=== PATIENT | female | born 1995 | race African-American/Black ===

== ENCOUNTER 2018-07-26 21:08 | Emergency (ER) | payer BC ==
--- NOTE | 2018-07-26 21:21 | PDOC ---
Rapid Medical Evaluation Time Seen by Provider: 07/26/18 21:20 Medical Evaluation: 07/26/18 21:21 I have performed a brief in-person evaluation of this patient. The patient presents with a chief complaint of:URI Pertinent physical exam findings:well nandini and stable I have ordered the following:nothing The patient will proceed to the ED for further evaluation. Discharge Disposition - Diagnosis URI (upper respiratory infection) Qualifiers: URI type: unspecified viral URI Qualified Code(s): J06.9 - Acute upper respiratory infection, unspecified - Referrals - Patient Instructions - Post Discharge Activity
[2018-07-26 21:23] VITALS: BP 133/76; PULSE 79; TEMP 98; BMI 26.6
--- NOTE | 2018-07-26 22:14 | PDOC ---
History of Present Illness - General Chief Complaint: Cold Symptoms Stated Complaint: SINUS INFECTION Time Seen by Provider: 07/26/18 21:20 - History of Present Illness Initial Comments: 07/26/18 22:13 23-year-old female with a past medical history significant for asthma, assures me there is no chance of , presents for evaluation of sinus pressure and ear pain bilaterally without systemic symptoms 2 weeks. Past History - Past Medical History Allergies/Adverse Reactions: Allergies Allergy/AdvReac Type Severity Reaction Status Date / Time rangel Allergy Verified 07/26/18 21:24 latex Allergy Verified 07/26/18 21:24 shellfish derived Allergy Verified 07/26/18 21:24 Home Medications: Ambulatory Orders Amox-Tr/K Cl [Augmentin - 875Mg Tablet] 1 tab PO BID #20 tablet 07/26/18 Budesonide [Rhinocort Allergy] 1 spray NS ONCE #1 spray.pump 07/26/18 Asthma: Yes COPD: No CHF: No - Suicide/Smoking/Psychosocial Hx Smoking History: Unknown if ever smoked Have you smoked in the past 12 months: No Information on smoking cessation initiated: No Hx Alcohol Use: No Drug/Substance Use Hx: No Review of Systems - Review of Systems HEENTM: Yes: Ear Pain, Nose Pain, Nose Congestion *Physical Exam - Vital Signs Last Vital Signs Temp Pulse Resp BP Pulse Ox 98.0 F 79 16 133/76 100 07/26/18 21:21 07/26/18 21:21 07/26/18 21:21 07/26/18 21:21 07/26/18 21:21 - Physical Exam Comments: 07/26/18 22:12 HEAD: NC/AT EYES: Conjuntiva clear Ears: Canals and TM's normal NOSE: Clear discharge injected turbinates tender maxillary and frontal sinuses. THROAT: Moist mucous membrances, oral pharanx clear, uvula midline NECK: Supple without adenopathy CARDIAC: S1 S2 LUNGS: CTA Full and Equal breath sounds ABDOMEN: Soft NT ND MS: Full ROM in all joints without edema NEUROLOGIC: No gross sensory or motor deficits, NVID SKIN: Normal color and temperature no lesions or rashes Medical Decision Making - Medical Decision Making 07/26/18 22:12 We'll treat for bacterial sinusitis with steroid all nasal spray and antibiotics and have patient follow-up with ENT. She is in agreement with the plan. *DC/Admit/Observation/Transfer Diagnosis at time of Disposition: Sinusitis Diagnosis at time of Disposition: (Ruled Out): URI (upper respiratory infection) - Discharge Dispostion Disposition: HOME Condition at time of disposition: Stable Decision to Admit order: No - Prescriptions Prescriptions: Amox-Tr/K Cl [Augmentin - 875Mg Tablet] 1 tab PO BID #20 tablet Budesonide [Rhinocort Allergy] 1 spray NS ONCE #1 spray.pump - Referrals Referrals: Chastity Edmond MD [Primary Care Provider] - Johnny Pino MD [Staff Physician] - - Patient Instructions Printed Discharge Instructions: Sinusitis, DI for Sinusitis Additional Instructions: Take the antibiotics as directed. Use a nasal spray as directed. Return to the emergency room should symptoms worsen or go unresolved. Follow-up with ear nose and throat doctor in 1-2 days for further evaluation and treatment options. And return to the emergency room should symptoms worsen - Post Discharge Activity
== END 2018-07-26 22:16 | disposition home or self-care (01) ==
LOC: JER 21:08
DX: J32.9 Chronic sinusitis, unspecified (principal); J45.909 Unspecified asthma, uncomplicated
CPT/HCPCS: 99281-25

== ENCOUNTER 2018-09-10 16:51 | Emergency (ER) | payer BC ==
[2018-09-10 17:11] VITALS: BP 127/81; PULSE 90; TEMP 98.5; BMI 31.0
--- NOTE | 2018-09-10 17:12 | PDOC ---
Rapid Medical Evaluation Chief Complaint: Chest Pain Time Seen by Provider: 09/10/18 17:05 Medical Evaluation: Allergies Allergy/AdvReac Type Severity Reaction Status Date / Time rangel Allergy Verified 07/26/18 21:24 latex Allergy Verified 07/26/18 21:24 shellfish derived Allergy Verified 07/26/18 21:24 Vital Signs Temp Pulse Resp BP Pulse Ox 98.5 F 90 16 127/81 97 09/10/18 17:05 09/10/18 17:05 09/10/18 17:05 09/10/18 17:05 09/10/18 17:05 09/10/18 17:17 I have performed a brief in-person evaluation of this patient. The patient presents with a chief complaint of: chest pain Pertinent physical exam findings:stable and in NAD, non-focal I have ordered the following: ekg The patient will proceed to the ED for further evaluation.
[2018-09-10] MEDS ORDERED: ALBUTEROL SO4 2.5/IPRATROPIUM 0.5 INH SOL 3 ML VIAL.NEB. NEB ONE ×2 (17:27→17:30)
--- NOTE | 2018-09-10 17:35 | PDOC ---
History of Present Illness - General Chief Complaint: Chest Pain Stated Complaint: CHEST PAIN Time Seen by Provider: 09/10/18 17:05 History Source: Patient Exam Limitations: No Limitations Past History - Past Medical History Allergies/Adverse Reactions: Allergies Allergy/AdvReac Type Severity Reaction Status Date / Time rangel Allergy Verified 07/26/18 21:24 latex Allergy Verified 07/26/18 21:24 shellfish derived Allergy Verified 07/26/18 21:24 Asthma: Yes COPD: No CHF: No - Immunization History Immunization Up to Date: Yes - Suicide/Smoking/Psychosocial Hx Smoking History: Current every day smoker Have you smoked in the past 12 months: No Number of Cigarettes Smoked Daily: 20 Information on smoking cessation initiated: No Hx Alcohol Use: No Drug/Substance Use Hx: Yes *Physical Exam - Vital Signs Last Vital Signs Temp Pulse Resp BP Pulse Ox 98.5 F 90 16 127/81 97 09/10/18 17:05 09/10/18 17:05 09/10/18 17:05 09/10/18 17:05 09/10/18 17:05 - Physical Exam General Appearance: No: Apparent Distress HEENT: positive: Pharynx Normal Respiratory/Chest: positive: Wheezing (mild expiratory wheezing). negative: Chest Tender, Respiratory Distress Cardiovascular: positive: Regular Rhythm, Regular Rate, S1, S2. negative: Murmur Gastrointestinal/Abdominal: positive: Normal Bowel Sounds, Soft. negative: Tender, Distended, Guarding, Rebound Extremity: negative: Pedal Edema, Swelling, Calf Tenderness Integumentary: positive: Normal Color Neurologic: positive: Alert, Normal Mood/Affect ED Treatment Course - RADIOLOGY Radiology Studies Ordered: Category Date Time Status CHEST PA & LAT [RAD] Stat Radiology 09/10/18 17:27 Ordered Medical Decision Making - Medical Decision Making 23 y/o F hx of asthma (no recent hx of asthma attack, never hospitalized or intubated), smoker (1 ppd since 16 years old) presents with sharp, pressure like substernal CP from yesterday, intermittent in nature, worse with inspiration and body movement. Mentions having similar CP last year, relieved with Naprosyn. However, tried Naprosyn yesterday without relief of pain. Also endorses mild dry cough and mild SOB with CP. Denies fever, abd pain, n/v, pedal edema, calf tenderness, recent travel, use of OCPs. LNMP was last month. EKG: NSR at 83 bpm, no ST-T changes PERC negative Mild wheezing on exam - probable related to asthma and smoking history Plan: CXR, duoneb, reassess 09/10/18 17:31 Patient feeling slightly better after duoneb On reassessment, no further wheezing noted CXR reviewed and negative Advised to quit smoking Stable for dc 09/10/18 18:00 *DC/Admit/Observation/Transfer Diagnosis at time of Disposition: Chest pain Qualifiers: Chest pain type: unspecified Qualified Code(s): R07.9 - Chest pain, unspecified - Discharge Dispostion Disposition: HOME Condition at time of disposition: Stable Decision to Admit order: No - Referrals - Patient Instructions Printed Discharge Instructions: DI for Chest Pain Additional Instructions: Thank you for choosing [facility]. It was a pleasure taking care of you. Advise to quit smoking Take Albuterol nebulizer as needed for chest tightness Follow up with your doctor in 2 days for further evaluation Return to the Emergency Department if your symptoms worsen or persist or have other concerning symptoms. - Post Discharge Activity
--- NOTE | 2018-09-13 00:32 | EKG ---
Test Reason : Blood Pressure : / mmHG Vent. Rate : 083 BPM Atrial Rate : 083 BPM P-R Int : 156 ms QRS Dur : 082 ms QT Int : 360 ms P-R-T Axes : 059 064 022 degrees QTc Int : 423 ms NORMAL SINUS RHYTHM WITH SINUS ARRHYTHMIA NORMAL ECG NO PREVIOUS ECGS AVAILABLE Confirmed by MD Miguelito, Kirill ([id number]) on 09/13/2018 12:32:30 AM Referred By: Confirmed By:Kirill Farley MD
== END 2018-09-10 18:05 | disposition home or self-care (01) ==
LOC: JERFT 16:51 → JER 16:51 → JERFT 18:05
PROC: 3E0F7GC Introduction of Other Therapeutic Substance into Respiratory Tract, Via Natural or Artificial Opening (ICD-10-PCS; principal; 2018-09-10)
DX: R07.9 Chest pain, unspecified (principal); J45.909 Unspecified asthma, uncomplicated; F17.210 Nicotine dependence, cigarettes, uncomplicated
CPT/HCPCS: 71046-TC-FY; 93005; 93010; 99282-25

== ENCOUNTER 2018-10-30 19:01 | Emergency (ER) | payer BC | END 2018-10-30 20:05 | disposition home or self-care (01) | LOC: JERFT 19:01 ==

== ENCOUNTER 2018-12-07 23:41 | Emergency (ER) | payer BC ==
[2018-12-08 00:10] VITALS: BP 135/81; PULSE 75; TEMP 97.7; BMI 25.8
--- NOTE | 2018-12-08 01:31 | PDOC ---
Documentation entered by Gissell Martin SCRIBE, acting as scribe for Mildred Alegria MD. Mildred Alegria MD: This documentation has been prepared by the Veronica daniel Sammi, SCRIBE, under my direction and personally reviewed by me in its entirety. I confirm that the documentation accurately reflects all work, treatment, procedures, and medical decision making performed by me. History of Present Illness - General Chief Complaint: Vaginal Bleeding Stated Complaint: VAGINAL BLEEDING Time Seen by Provider: 12/08/18 00:07 - History of Present Illness Initial Comments: 12/08/18 01:25 The patient is a 23 year old female who presents to the emergency department for 4 days of vaginal bleeding beginning on 12/03. LMP 11/13. She denies all other complaints. [employer]: in [place] Past History - Past Medical History Allergies/Adverse Reactions: Allergies Allergy/AdvReac Type Severity Reaction Status Date / Time rangel Allergy Verified 12/08/18 00:10 latex Allergy Verified 12/08/18 00:10 shellfish derived Allergy Verified 12/08/18 00:10 Asthma: Yes COPD: No CHF: No - Immunization History Immunization Up to Date: Yes - Suicide/Smoking/Psychosocial Hx Smoking History: Never smoked Have you smoked in the past 12 months: No Number of Cigarettes Smoked Daily: 20 Hx Alcohol Use: No Drug/Substance Use Hx: No Review of Systems - Review of Systems Comments:: 12/08/18 01:25 CONSTITUTIONAL: Absent: fever, no chills, no fatigue EYES: Absent: visual changes ENT: Absent: ear pain, no sore throat CARDIOVASCULAR: Absent: chest pain, no palpitations RESPIRATORY: Absent: cough, no SOB GI: Absent: abdominal pain, no nausea, no vomiting, no constipation, no diarrhea GENITOURINARY: (+)vaginal bleeding Absent: dysuria, no frequency, no hematuria MUSKULOSKELETAL: Absent: back pain, no arthralgia, no myalgia SKIN: Absent: rash NEURO: Absent: headache *Physical Exam - Vital Signs Last Vital Signs Temp Pulse Resp BP Pulse Ox 97.7 F 75 19 135/81 97 12/07/18 23:45 12/07/18 23:45 12/07/18 23:45 12/07/18 23:45 12/07/18 23:45 - Physical Exam Comments: 12/08/18 01:25 GENERAL: Well-appearing, well-nourished. No apparent distress. HEENT: Normocephalic, atraumatic. PERRL, EOM intact. CARDIOVASCULAR: Normal S1, S2. Regular rate and rhythm. PULMONARY: Clear to auscultation bilaterally. ABDOMEN: Soft, non-distended, non-tender. EXTREMITIES: Normal ROM in all four extremities. No gross deformities. SKIN: Warm, dry. No rash NEUROLOGICAL: No focal neurological deficits. ED Treatment Course - ADDITIONAL ORDERS Additional order review: Laboratory Results 12/08/18 00:51 Urine HCG, Qual Negative Medical Decision Making - Medical Decision Making 12/08/18 01:28 pt's LMP was November 13 this year her test is negative her vital signs are stable she does not have orthostatic hypotension ,she has no dizziness and no heavy bleeding imp menstrual cycle *DC/Admit/Observation/Transfer Diagnosis at time of Disposition: Vaginal bleeding - Discharge Dispostion Disposition: HOME Condition at time of disposition: Stable - Referrals Referrals: Chastity Edmond MD [Primary Care Provider] - - Patient Instructions Printed Discharge Instructions: DI for Vaginal Bleeding Additional Instructions: please follow up with your it field technician - Post Discharge Activity
== END 2018-12-08 01:31 | disposition home or self-care (01) ==
LOC: JER 23:41
DX: N93.9 Abnormal uterine and vaginal bleeding, unspecified (principal); Z91.018 Allergy to other foods; Z91.013 Allergy to seafood; J45.909 Unspecified asthma, uncomplicated
CPT/HCPCS: 84703; 99281-25

== ENCOUNTER 2018-12-27 12:11 | Inpatient (IN) | payer BC ==
[2018-12-27] MEDS ORDERED: ALBUTEROL SO4 2.5/IPRATROPIUM 0.5 INH SOL 3 ML VIAL.NEB. NEB ONE ×6 (12:19→17:23)
[2018-12-27] MEDS ORDERED: DEXAMETHASONE LIQUID 0.5 MG/5 ML PO ONE (12:49)
[2018-12-27] MEDS: ALBUTEROL SO4 2.5/IPRATROPIUM 0.5 INH SOL 3 ML VIAL.NEB. NEB SCH ×5 (12:52→22:23)
[2018-12-27] MEDS ORDERED: MAGNESIUM SULF 50% (8.12 MEQ/2 ML-1 GM VIAL) IVPB ONE (12:52)
[2018-12-27] MEDS ORDERED: DEXAMETHASONE SOD PHOSPHATE 10 MG/1 ML VIAL ONE (12:53)
[2018-12-27] MEDS ORDERED: MAGNESIUM 1GM/D5W - 2 GM/200 ML IVPB IVPB ONE (12:59)
--- NOTE | 2018-12-27 14:30 | PDOC ---
History of Present Illness - General Chief Complaint: Shortness of Breath Stated Complaint: ASTHMA/ SOB Time Seen by Provider: 12/27/18 12:22 - History of Present Illness Initial Comments: 12/27/18 14:28 23-year-old female with a past medical history significant for asthma presents for exacerbation of asthma since last night unrelieved by her home nebulizer Past History - Past Medical History Allergies/Adverse Reactions: Allergies Allergy/AdvReac Type Severity Reaction Status Date / Time rangel Allergy Verified 12/27/18 12:16 latex Allergy Verified 12/27/18 12:16 shellfish derived Allergy Verified 12/27/18 12:16 Asthma: Yes COPD: No CHF: No - Reproductive History (#): 1 Para: 0 Therapeutic (s) & number: Yes (2 YEARS AGO) - Immunization History Immunization Up to Date: Yes - Psycho Social/Smoking Cessation Hx Smoking History: Never smoked Have you smoked in the past 12 months: No Number of Cigarettes Smoked Daily: 20 Information on smoking cessation initiated: No Hx Alcohol Use: No Drug/Substance Use Hx: No Review of Systems - Review of Systems Respiratory: Yes: Cough, Shortness of Breath, Wheezing *Physical Exam - Vital Signs Last Vital Signs Temp Pulse Resp BP Pulse Ox 98.7 F 107 H 18 120/78 100 12/27/18 12:16 12/27/18 12:16 12/27/18 12:16 12/27/18 12:16 12/27/18 12:16 - Physical Exam Comments: 12/27/18 14:29 HEAD: NC/AT EYES: Conjuntiva clear Ears: Canals and TM's normal NOSE: No d/c THROAT: Moist mucous membrances, oral pharanx clear, uvula midline NECK: Supple without adenopathy CARDIAC: S1 S2 LUNGS: Diffuse wheezing ABDOMEN: Soft NT ND MS: Full ROM in all joints without edema NEUROLOGIC: No gross sensory or motor deficits, NVID SKIN: Normal color and temperature no lesions or rashes ED Treatment Course - RADIOLOGY Radiology Studies Ordered: Category Date Time Status CHEST PA & LAT [RAD] Stat Radiology 12/27/18 12:49 Completed - Medications Given in the ED: ED Medications Discontinued Medications Generic Name Dose Route Start Last Admin Trade Name Freq PRN Reason Stop Dose Admin Albuterol/Ipratropium 1 amp 12/27/18 13:00 12/27/18 13:51 Duoneb - NEB 12/27/18 13:46 1 amp Q15M CELIA Administration Dexamethasone 10 mg 12/27/18 12:49 12/27/18 13:01 Decadron Liquid - PO 12/27/18 12:50 10 mg ONCE ONE Administration Magnesium Sulfate 2 gm 12/27/18 12:52 12/27/18 13:02 Magnesium Sulfate IVPB 12/27/18 12:53 2 gm ONCE ONE Administration Medical Decision Making - Medical Decision Making 12/27/18 14:29 Chest x-ray clear, patient given 2 g of magnesium tented Decadron for duo nebs reevaluation shows diffuse wheezing will transfer to the main emergency room Discharge - Discharge Information Problems reviewed: Yes Clinical Impression/Diagnosis: Asthma Condition: Guarded - Follow up/Referral - Patient Discharge Instructions - Post Discharge Activity
--- NOTE | 2018-12-27 15:17 | PDOC ---
History of Present Illness - General Chief Complaint: Shortness of Breath Stated Complaint: ASTHMA/ SOB Time Seen by Provider: 12/27/18 12:22 - History of Present Illness Initial Comments: 12/27/18 15:11 This is a 23 year old female with PMH significant for asthma. She presents to the ER with complaints of SOB and wheezing since 10PM last night. She used her albuterol inhaler multiple times, with temporary relief, but her symptoms re- appeared. She has had asthma for the past 20 years, uses albuterol inhaler at home (has not used steroids), and has never been hospitalized or intubated before. She endorses wheezing, SOB, and a dry cough. She denies any recent illnesses, fevers, chills, abdominal pain, chest pain, palpitations, nausea, vomiting, diarrhea, constipation, abdominal pain, dysuria, hematuria, or polyuria. She smokes 1ppd, and has been smoking for the past 10 years. Past History - Past Medical History Allergies/Adverse Reactions: Allergies Allergy/AdvReac Type Severity Reaction Status Date / Time rangel Allergy Verified 12/27/18 12:16 latex Allergy Verified 12/27/18 12:16 shellfish derived Allergy Verified 12/27/18 12:16 Home Medications: Ambulatory Orders Albuterol 0.083% Nebulizer Hafsa [Ventolin 0.083% Nebulizer Soln -] 1 amp NEB Q6H PRN #30 amp 12/31/18 Albuterol Sulfate Inhaler - [Ventolin HFA Inhaler -] 1 - 2 inh PO Q4H PRN #1 inhaler 12/31/18 Budesonide/Formeterol Fumarate [SYMBICORT 160/4.5mcg -] 1 inh PO BID #1 cannister 12/31/18 Montelukast Na [Singulair -] 10 mg PO HS #30 tablet 12/31/18 Nicotine Patch [Nicoderm Patch -] 7 mg TD DAILY #14 patch 12/31/18 predniSONE [Deltasone -] 20 mg PO DAILY #30 tablet 12/31/18 Asthma: Yes COPD: No CHF: No - Reproductive History (#): 1 Para: 0 Therapeutic (s) & number: Yes (2 YEARS AGO) - Immunization History Immunization Up to Date: Yes - Psycho Social/Smoking Cessation Hx Smoking History: Never smoked Have you smoked in the past 12 months: No Number of Cigarettes Smoked Daily: 20 Information on smoking cessation initiated: No Hx Alcohol Use: No Drug/Substance Use Hx: No Review of Systems - Review of Systems Able to Perform ROS?: Yes Is the patient limited Filipino proficient: No Constitutional: No: Symptoms Reported, See HPI, Chills, Diaphoresis, Fever, Loss of Appetite, Malaise, Night Sweats, Weakness, Weight Stable, Unintentional Wgt. Loss, Unexplained wgt Loss, Other HEENTM: No: Symptoms Reported, See HPI, Eye Pain, Blurred Vision, Tearing, Recent change in vision, Double Vision, Cataracts, Ear Pain, Ocular Prothesis, Ear Discharge, Nose Pain, Nose Congestion, Tinnitus, Nose Bleeding, Hearing Loss , Throat Pain, Throat Swelling, Mouth Pain, Dental Problems, Difficulty Swallowing, Mouth Swelling, Other Respiratory: Yes: Cough, Shortness of Breath, Wheezing. No: Symptoms reported, See HPI, Orthopnea, SOB with Exertion, SOB at Rest, Stridor, Productive cough, Hemoptysis, Other Cardiac (ROS): No: Symptoms Reported, See HPI, Chest Pain, Edema, Irregular Heart Rate, Lightheadedness, Palpitations, Syncope, Chest Tightness, Other ABD/GI: No: Symptoms Reported, See HPI, Abdominal Distended, Abd. Pain w/ defecation, Blood Streaked Bowels, Constipated, Diarrhea, Difficulty Swallowing , Nausea, Poor Appetite, Poor Fluid Intake, Rectal Bleeding, Vomiting, Indigestion, Abdominal cramping, Tarry Stools, Other : No: Symptoms Reported, See HPI, Burning, Dysuria, Discharge, Frequency, Flank Pain, Hematuria, Incontinence, Pain, Urgency, Testicular Mass, Testicular Swelling, Lesions, Testicular Pain, Other Musculoskeletal: No: Symptoms Reported, See HPI, Back Pain, Gout, Joint Pain, Joint Swelling, Muscle Pain, Muscle Weakness, Neck Pain, Joint Stiffness, Other Integumentary: No: Symptoms Reported, See HPI, Bruising, Change in Color, Change in Hair/Nails, Dryness, Erythema, Flushing, Lesions, Lumps, Pallor, Pruritus, Rash, Sweating, Other Neurological: No: Symptoms reported, See HPI, Headache, Numbness, Paresthesia, Pre-Existing Deficit, Seizure, Tingling, Tremors, Weakness, Unsteady Gait, Ataxia, Dizziness, Other Psychiatric: No: Anxiety, Depression, Frequent Crying, Stressors, Sleep Pattern Change, Emotional Problems, Mood Swings, Change in Appetite, Other Endocrine: No: Symptoms Reported, See HPI, Excessive Sweating, Flushing, Intolerance to Cold, Intolerance to Heat, Increased Hunger, Increased Thirst, Increased Urine, Unexplained Weight Gain, Unexplained Weight Loss, Change in Weight, Other *Physical Exam - Vital Signs Last Vital Signs Temp Pulse Resp BP Pulse Ox 98.7 F 103 H 20 120/78 93 L 12/27/18 12:16 12/27/18 14:30 12/27/18 14:30 12/27/18 12:16 12/27/18 14:30 - Physical Exam Comments: 12/27/18 15:19 General: AOx3, responsive, non-cooperative and complaining she can not breathe while also playing games on her phone during examination Oropharynx: refused exam, demanding medication Eyes: refused exam, demanding medication Lungs: B/L wheezing Heart: Regular rate, regular rhythm, no murmurs rubs or gallops appreciated Abdomen: refused exam, demanding medication Extremities: refused exam, demanding medication Neuro: refused exam, demanding medication 12/28/18 07:06 ED Treatment Course - LABORATORY CBC & Chemistry Diagram: 12/28/18 06:32 12/28/18 06:32 - Medications Given in the ED: ED Medications Discontinued Medications Generic Name Dose Route Start Last Admin Trade Name Jongq PRN Reason Stop Dose Admin Albuterol/Ipratropium 1 amp 12/27/18 13:00 12/27/18 13:51 Duoneb - NEB 12/27/18 13:46 1 amp Q15M CELIA Administration Dexamethasone 10 mg 12/27/18 12:49 12/27/18 13:01 Decadron Liquid - PO 12/27/18 12:50 10 mg ONCE ONE Administration Magnesium Sulfate 2 gm 12/27/18 12:52 12/27/18 13:02 Magnesium Sulfate IVPB 12/27/18 12:53 2 gm ONCE ONE Administration Medical Decision Making - Medical Decision Making 12/27/18 15:22 - Patient received 4x Duonebs, Dexamethasone 10mg PO, and had a CXR done in [facility]. - CXR showed no abnormalities - O2 90% on room air. 2L O2 NC provided but patient was not using it. Patient advised to keep her mask on. Will aim for O2 >93% - Will continue Duonebs treatment and reassess - Patient has no PEFR baseline since she does not use a peak flow meter at home - PEFR estimate is 481.8 L/min based on the formula PEFT for Adult Women = ((( Height in m x 3.72) + 2.24) - (Age x 0.03)) x 60 12/27/18 17:01 - After 5th Duoneb treatment, patient reassessed - On auscultation: Wheezing B/L, no improvement from previous exam - O2 Sat: 89 on room air - PEF: 200, approximately 45% of expected PEFR - Will give another dose of duonebs - Patient verbally abusive, states she will "punch someone before the day is over" 12/27/18 18:25 - No improvement on re-assessment - CBC/CMP ordered - Will admit 12/27/18 18:54 - Patient signed out to Dr. Morales Discharge - Discharge Information Problems reviewed: Yes Clinical Impression/Diagnosis: Asthma Qualifiers: Asthma persistence: intermittent Asthma complication type: with acute exacerbation Condition: Guarded Disposition: HOME - Admission Yes - Follow up/Referral - Patient Discharge Instructions - Post Discharge Activity
--- NOTE | 2018-12-27 16:40 | PDOC ---
Attending Attestation - Resident Resident Name: Dagoberto Steve - ED Attending Attestation I have performed the following: I have examined & evaluated the patient, The case was reviewed & discussed with the resident, I agree w/resident's findings & plan, Exceptions are as noted - HPI HPI: 12/27/18 16:38 23-year-old female history of asthma since childhood also tobacco user here today complaining of cough and wheezing shortness of breath. Patient states she has used her asthma inhaler several times a day is not currently on any steroids no history of previous intubations or ICU visits states that this time of year and whether changing is a trigger of her denies any fevers chills no chest pain no other current complaints denies any other drug use - Physicial Exam PE: 12/27/18 16:39 Awake alert no acute distress lungs are with bilateral expiratory wheezing at this time has normal work of breathing post nebs accessory muscle use good aeration heart is regular tachycardia without any murmurs rubs or gallops abdomen is soft nontender extremities are warm and well-perfused skin is warm and dry no rash no edema noted neurologically she is awake alert and oriented x3 - Medical Decision Making 12/27/18 16:39 23-year-old female asthmatic here today with an asthma exacerbation she is also a smoker. Will be given steroids and serial nebs. Will require peak flow assessment and observation for persistent wheezing patient will be admitted we will reassess patient in 1 hour post nebs
[2018-12-27 17:39] LABS: BASO % 0.5 % (0-2.0); EOS % 0.1 % (0-4.5); HEMATOCRIT 35.3 % (32.4-45.2); HEMOGLOBIN 10.8 GM/dL (10.7-15.3); MCHC 30.7 g/dl (32.0-36.0); MEAN PLT VOLUME 8.7 fl (7.5-11.1); MONO % 0.6 % (3.8-10.2); NEUT % 96.8 % (42.8-82.8); PLATELET COUNT 236 K/MM3 (134-434); RBC 5.98 M/mm3 (3.60-5.2); RDW 21.3 % (11.6-15.6); WHITE BLOOD COUNT 10.4 K/mm3 (4.0-10.0)
[2018-12-27 17:50] LABS: MCH 18.1 pg (25.7-33.7)
[2018-12-27 18:14] LABS: ALBUMIN 4.2 g/dl (3.4-5.0); BILIRUBIN,TOTAL 0.5 mg/dL (0.2-1); BLOOD UREA NITROGEN 7.9 mg/dL (7-18); CREATININE 0.8 mg/dL (0.55-1.3); POTASSIUM 3.8 mmol/L (3.5-5.1); TOT PROT 8.4 g/dl (6.4-8.2)
[2018-12-27 18:21] LABS: ANISOCYTOSIS 2+; PLATELET ESTIMATE ADEQUATE; TARGET CELLS FEW
--- NOTE | 2018-12-27 19:11 | PDOC ---
*Physical Exam - Vital Signs Last Vital Signs Temp Pulse Resp BP Pulse Ox 98.7 F 103 H 20 120/78 93 L 12/27/18 12:16 12/27/18 14:30 12/27/18 14:30 12/27/18 12:16 12/27/18 14:30 - Physical Exam General Appearance: Yes: Nourished, Appropriately Dressed, Other ([place]-haired female, appears stated age, in no acute distress). No: Apparent Distress HEENT: positive: EOMI, DEVANTE, Normal Voice, Symmetrical, Pharynx Normal. negative: Scleral Icterus (R), Scleral Icterus (L) Neck: positive: Supple. negative: Tender, Rigid, Lymphadenopathy (R), Lymphadenopathy (L) Respiratory/Chest: positive: Wheezing (wheezing present in all lung campos bilaterally), Other (speaking in full sentences, on 3L NC). negative: Chest Tender, Respiratory Distress, Accessory Muscle Use Cardiovascular: positive: Regular Rhythm, Regular Rate. negative: Edema, Murmur Gastrointestinal/Abdominal: positive: Normal Bowel Sounds, Flat, Soft. negative : Distended, Guarding Musculoskeletal: positive: Normal Inspection. negative: CVA Tenderness Extremity: positive: Normal Inspection, Normal Range of Motion. negative: Tender Integumentary: positive: Normal Color, Dry, Warm Neurologic: positive: Alert, Normal Mood/Affect, Normal Response ED Treatment Course - LABORATORY CBC & Chemistry Diagram: 12/27/18 17:15 12/27/18 17:15 - ADDITIONAL ORDERS Additional order review: Laboratory Results 12/27/18 12/27/18 17:15 16:30 Sodium 139 Potassium 3.8 Chloride 109 H Carbon Dioxide 26 Anion Gap 5 L BUN 7.9 Creatinine 0.8 Est GFR (CKD-EPI)AfAm 119.60 Est GFR (CKD-EPI)NonAf 103.19 Random Glucose 145 H Calcium 9.0 Total Bilirubin 0.5 AST 19 ALT 18 Alkaline Phosphatase 84 Total Protein 8.4 H Albumin 4.2 Urine HCG, Qual Negative 12/27/18 17:15 RBC 5.98 H MCV 59.0 L MCHC 30.7 L RDW 21.3 H MPV 8.7 Neutrophils % 96.8 H Lymphocytes % 2.0 L Monocytes % 0.6 L Eosinophils % 0.1 Basophils % 0.5 - Medications Given in the ED: ED Medications Discontinued Medications Generic Name Dose Route Start Last Admin Trade Name Anayeli PRN Reason Stop Dose Admin Albuterol/Ipratropium 1 amp 12/27/18 13:00 12/27/18 13:51 Duoneb - NEB 12/27/18 13:46 1 amp Q15M CELIA Administration Albuterol/Ipratropium 1 amp 12/27/18 15:07 12/27/18 16:10 Duoneb - NEB 12/27/18 15:08 1 amp ONCE ONE Administration Albuterol/Ipratropium 1 amp 12/27/18 17:03 12/27/18 17:47 Duoneb - NEB 12/27/18 17:04 1 amp ONCE ONE Administration Dexamethasone 10 mg 12/27/18 12:49 12/27/18 13:01 Decadron Liquid - PO 12/27/18 12:50 10 mg ONCE ONE Administration Magnesium Sulfate 2 gm 12/27/18 12:52 12/27/18 13:02 Magnesium Sulfate IVPB 12/27/18 12:53 2 gm ONCE ONE Administration Medical Decision Making - Medical Decision Making 12/27/18 19:07 Signed out to me by Dr. Steve. Lesia Brar is a 23F with PMH asthma on albuterol inhaler, no steroid inhaler presenting with asthma exacerbation. Had asthma attack starting 10PM last night, has wheezing that has not resolved. Given total of 6x Duonebs since arrival each hour, given 10mg Decadron and 2mg Mag for refractory asthma. On 2L NC, satting 90% CXR clear PEG 40% of predicted Requires admission for asthma exacerbation refractory to initial treatments, as well as hypoxia with increased oxygen requirement and PEF 40% of predicted normal. 12/27/18 20:06 Spoke to SHAKIRA Storey regarding admission to Med-Surg under Dr. Whitehead for asthma exacerbation Discharge - Discharge Information Problems reviewed: Yes Clinical Impression/Diagnosis: Asthma Condition: Guarded - Follow up/Referral - Patient Discharge Instructions - Post Discharge Activity
--- NOTE | 2018-12-27 22:11 | HP ---
Admitting History and Physical - Primary Care Physician PCP: Chastity Edmond - Admission Chief Complaint: SOB, Wheezing, Chest Tightness History of Present Illness: This is a 23 y/o woman with a PMHx of Asthma, Tobacco Use 1PPD x 10 years. Who presents to the ED with complaints of SOB and wheezing since 10PM last night. Patient reports she used her albuterol inhaler multiple times, with temporary relief, but her symptoms re-appeared. She reports having wheezing, SOB, and a productive cough with yellow phlegm. She has had asthma for the past 20 years, uses albuterol inhaler at home (has not used steroids), and has never been hospitalized or intubated before. Patient denies any recent illnesses, fevers, chills, abdominal pain, chest pain , palpitations, nausea, vomiting, diarrhea, constipation, abdominal pain, dysuria, hematuria, or polyuria. History Source: Patient Limitations to Obtaining History: No Limitations - Past Medical History Pulmonary: Yes: Asthma ...LMP: 11/13/18 - Past Surgical History Past Surgical History: Yes: None - Smoking History Smoking history: Current every day smoker Have you smoked in the past 12 months: Yes Aproximately how many cigarettes per day: 20 - Alcohol/Substance Use Hx Alcohol Use: No History of Substance Use: reports: None - Social History Usual Living Arrangement: Yes: With Parent Do you think of yourself as: Straight/Heterosexual ADL: Independent History of Recent Travel: No Home Medications - Allergies Allergies/Adverse Reactions: Allergies Allergy/AdvReac Type Severity Reaction Status Date / Time rangel Allergy Verified 12/27/18 12:16 latex Allergy Verified 12/27/18 12:16 shellfish derived Allergy Verified 12/27/18 12:16 - Home Medications Home Medications: Ambulatory Orders Albuterol Sulfate Inhaler - [Ventolin Hfa Inhaler -] 1 - 2 inh PO Q4H PRN Family Medical History Family History: Unable to Obtain Review of Systems - Review of Systems Constitutional: reports: No Symptoms Eyes: reports: No Symptoms HENT: reports: No Symptoms Neck: reports: No Symptoms Cardiovascular: reports: Shortness of Breath Respiratory: reports: Cough, Exercise Intolerance, Orthopnea, SOB, SOB on Exertion, Wheezing Gastrointestinal: reports: No Symptoms Genitourinary: reports: No Symptoms Breasts: reports: No Symptoms Reported Musculoskeletal: reports: No Symptoms Integumentary: reports: No Symptoms Neurological: reports: No Symptoms Endocrine: reports: No Symptoms Hematology/Lymphatic: reports: No Symptoms Psychiatric: reports: No Symptoms Pain Intensity: 2 Physical Examination Vital Signs: Vital Signs Temperature 98.7 F 12/27/18 12:16 Pulse Rate 103 H 12/27/18 14:30 Respiratory Rate 20 12/27/18 14:30 Blood Pressure 120/78 12/27/18 12:16 O2 Sat by Pulse Oximetry (%) 93 L 12/27/18 14:30 Constitutional: Yes: Moderate Distress Eyes: Yes: WNL, Conjunctiva Clear, EOM Intact, PERRL HENT: Yes: WNL, Atraumatic, Normocephalic Neck: Yes: WNL, Supple, Trachea Midline Cardiovascular: Yes: Tachycardia, S1, S2 Respiratory: Yes: Accessory Muscle Use, Cough, On Nasal O2, Rhonchi, SOB, SOB on Exertion, Tachypnea, Wheezes Gastrointestinal: Yes: WNL, Normal Bowel Sounds, Soft ...Rectal Exam: Yes: Deferred Renal/: Yes: WNL Breast(s): Yes: WNL Musculoskeletal: Yes: WNL Extremities: Yes: WNL Edema: No Peripheral Pulses WNL: Yes Integumentary: Yes: WNL Neurological: Yes: WNL, Alert, Oriented, Cran Nerves II-XII Intact ...Motor Strength: WNL Psychiatric: Yes: WNL, Alert, Oriented Labs: CBC, BMP 12/27/18 17:15 12/27/18 17:15 Laboratory Results - last 24 hr 12/27/18 12/27/18 12/27/18 16:30 17:15 17:15 WBC 10.4 H RBC 5.98 H Hgb 10.8 Hct 35.3 MCV 59.0 L MCH 18.1 L MCHC 30.7 L RDW 21.3 H Plt Count 236 MPV 8.7 Absolute Neuts (auto) 10.0 H Total Counted 100 Neutrophils % 96.8 H Neutrophils % (Manual) 94.0 H Lymphocytes % 2.0 L Lymphocytes % (Manual) 5.0 L Monocytes % 0.6 L Monocytes % (Manual) 1 L Eosinophils % 0.1 Basophils % 0.5 Nucleated RBC % 0 Hypochromia 3+ Platelet Estimate Adequate Platelet Comment No clumping noted Polychromasia 1+ Anisocytosis 2+ Microcytosis 3+ Target Cells Few Sodium 139 Potassium 3.8 Chloride 109 H Carbon Dioxide 26 Anion Gap 5 L BUN 7.9 Creatinine 0.8 Est GFR (CKD-EPI)AfAm 119.60 Est GFR (CKD-EPI)NonAf 103.19 Random Glucose 145 H Calcium 9.0 Total Bilirubin 0.5 AST 19 ALT 18 Alkaline Phosphatase 84 Total Protein 8.4 H Albumin 4.2 Urine HCG, Qual Negative Intake & Output 12/25/18 12/26/18 12/27/18 12/28/18 23:59 23:59 23:59 23:59 Weight 81.647 kg 89.358 kg Current Medications Generic Name Dose Route Start Last Admin Trade Name Freq PRN Reason Stop Dose Admin Albuterol Sulfate 1 amp 12/28/18 00:16 12/28/18 03:16 Ventolin 0.083% Nebulizer Soln - NEB 1 amp Q6H PRN Administration SHORT OF BREATH/WHEEZING Albuterol/Ipratropium 1 amp 12/27/18 22:15 12/27/18 22:23 Duoneb - NEB 1 amp RQID CELIA Administration Guaifenesin 10 ml 12/28/18 00:15 12/28/18 00:46 Robitussin - PO 10 ml Q6H PRN Administration COUGH Influenza Virus Vaccine Quadrival 60 mcg 12/28/18 10:00 Flulaval Quad [id number] IM 12/28/18 10:01 .ONCE ONE Methylprednisolone Sodium Succinate 40 mg 12/28/18 02:00 12/28/18 02:17 Solu-Medrol - IVPUSH 40 mg Q8H-IV CELIA Administration Nicotine 7 mg 12/28/18 10:00 Nicoderm Patch - TD DAILY CELIA Pneumococcal 13-Valent Conj Vacc 0.5 ml 12/28/18 10:00 Prevnar 13 Syringe - IM 12/28/18 10:01 .ONCE ONE Imaging - Results Chest X-ray: Report Reviewed, Image Reviewed Problem List - Problems (1) Asthma exacerbation Assessment/Plan: Continue Duonebs O2- Venturi Mask 50% Chest xray image reviewed Dexamethasone, Magnesium given in ED Will start Solumederol IV w/taper Appreciate Pulm consult Patient counseled on smoking cessation, patient is amendable Peakflow Monitor CBC, BMP Monitor vitals HOB elevated Code(s): J45.901 - UNSPECIFIED ASTHMA WITH (ACUTE) EXACERBATION (2) Tobacco dependence due to cigarettes Assessment/Plan: Patient counseled on smoking cessation, patient is amendable Nicoderm Patch Code(s): F17.210 - NICOTINE DEPENDENCE, CIGARETTES, UNCOMPLICATED Assessment/Plan This is a 23 y/o woman with a PMHx of Asthma. Admitted to M/S for Asthma Exacerbation for further evaluation of their emergent condition. Plan: See Problem List FEN PO fluids as tolerated Replete lytes prn Regular Diet DVT ppx Low Risk OOB Dispo: Requires Inpatient Care Visit type - Emergency Visit Emergency Visit: Yes ED Registration Date: 12/27/18 Care time: The patient presented to the Emergency Department on the above date and was hospitalized for further evaluation of their emergent condition. - New Patient This patient is new to me today: Yes Date on this admission: 12/27/18 - Critical Care Critical Care patient: No
[2018-12-27] MEDS ORDERED: methylPREDNISolone NA SUCC 40 MG/1 ML VIAL ONE (22:16)
[2018-12-27] MEDS ORDERED: ALBUTEROL SO4 0.083% IH SOL 2.5 MG/3 ML VIAL.NEB. NEB ONE (22:16)
[2018-12-28] MEDS ORDERED: ALBUTEROL SO4 2.5/IPRATROPIUM 0.5 INH SOL 3 ML VIAL.NEB. NEB ONE (00:42)
[2018-12-28] MEDS: guaiFENesin 200 MG/10 ML 10 ML UNIT-DOSE CUPS PO PRN ×2 (00:46→10:26)
[2018-12-28] MEDS: methylPREDNISolone NA SUCC 40 MG/1 ML VIAL IVPUSH SCH ×3 (02:17→18:23)
[2018-12-28] MEDS: ALBUTEROL SO4 0.083% IH SOL 2.5 MG/3 ML VIAL.NEB. NEB PRN (03:16)
[2018-12-28] MEDS ORDERED: DIPHTH,PERTUSS(ACELL),TET 0.5 ML DISP.SYRIN IM ONE (03:50)
[2018-12-28 05:03] VITALS: BMI 29.0
[2018-12-28 07:25] LABS: BASO % 0.1 % (0-2.0); HEMATOCRIT 31.4 % (32.4-45.2); HEMOGLOBIN 9.8 GM/dL (10.7-15.3); LYMPH % 6.9 % (8-40); MCHC 31.1 g/dl (32.0-36.0); MEAN CELL VOLUME 58.7 fl (80-96); MEAN PLT VOLUME 9.3 fl (7.5-11.1); MONO % 4.2 % (3.8-10.2); NEUT % 88.8 % (42.8-82.8); PLATELET COUNT 222 K/MM3 (134-434); RBC 5.34 M/mm3 (3.60-5.2); RDW 21.5 % (11.6-15.6); WHITE BLOOD COUNT 12.9 K/mm3 (4.0-10.0)
[2018-12-28] MEDS: ALBUTEROL SO4 2.5/IPRATROPIUM 0.5 INH SOL 3 ML VIAL.NEB. NEB SCH ×4 (07:38→19:55)
[2018-12-28 07:48] LABS: MCH 18.3 pg (25.7-33.7)
[2018-12-28 07:50] LABS: BLOOD UREA NITROGEN 9.7 mg/dL (7-18); CALCIUM 9.1 mg/dL (8.5-10.1); CREATININE 0.7 mg/dL (0.55-1.3); POTASSIUM 4.3 mmol/L (3.5-5.1)
--- NOTE | 2018-12-28 08:23 | PN ---
Progress Note, Physician - Current Medication List Current Medications: Active Medications Albuterol Sulfate (Ventolin 0.083% Nebulizer Soln -) 1 amp NEB Q6H PRN PRN Reason: SHORT OF BREATH/WHEEZING Last Admin: 12/28/18 03:16 Dose: 1 amp Albuterol/Ipratropium (Duoneb -) 1 amp NEB RQID CELIA Last Admin: 12/28/18 07:38 Dose: 1 amp Guaifenesin (Robitussin -) 10 ml PO Q6H PRN PRN Reason: COUGH Last Admin: 12/28/18 00:46 Dose: 10 ml Influenza Virus Vaccine Quadrival (Flulaval Quad [id number]) 60 mcg IM .ONCE ONE Stop: 12/28/18 10:01 Methylprednisolone Sodium Succinate (Solu-Medrol -) 40 mg IVPUSH Q8H-IV CELIA Last Admin: 12/28/18 02:17 Dose: 40 mg Nicotine (Nicoderm Patch -) 7 mg TD DAILY CELIA Pneumococcal Polyvalent Vaccine (Pneumovax -) 0.5 ml IM .ONCE ONE Stop: 12/28/18 10:01 - Objective Vital Signs: Vital Signs Temperature 98.2 F 12/28/18 04:55 Pulse Rate 87 12/28/18 04:55 Respiratory Rate 22 H 12/28/18 04:55 Blood Pressure 129/70 12/28/18 04:55 O2 Sat by Pulse Oximetry (%) 99 12/28/18 05:30 Cardiovascular: Yes: Regular Rate and Rhythm Respiratory: Yes: On Nasal O2, Wheezes Gastrointestinal: Yes: Normal Bowel Sounds, Soft Labs: CBC, BMP 12/28/18 06:32 12/28/18 06:32 Problem List - Problems (1) Asthma exacerbation Assessment/Plan: Continue Duonebs O2- Venturi Mask 50% Chest xray image reviewed Dexamethasone, Magnesium given in ED Solumederol IV w/taper Appreciate Pulm consult Patient counseled on smoking cessation, patient is amendable Peakflow Monitor CBC, BMP Monitor vitals HOB elevated Code(s): J45.901 - UNSPECIFIED ASTHMA WITH (ACUTE) EXACERBATION (2) Tobacco dependence due to cigarettes Assessment/Plan: Patient counseled on smoking cessation, patient is amendable Nicoderm Patch Code(s): F17.210 - NICOTINE DEPENDENCE, CIGARETTES, UNCOMPLICATED
[2018-12-28] MEDS ORDERED: PT OWN MED DRAWER 7, Y5N ONE (09:30)
--- NOTE | 2018-12-28 09:47 | CON.PULM ---
Consult Consult Specialty:: PULM/CCM Referred by:: ENRIQUE Reason for Consultation:: SOB - History of Present Illness Chief Complaint: SOB History of Present Illness: 23 F, intermittent asthma. No previous hospitalizations. No controlling medications or ever steroid dependent. Unknown PEF. Last acute exacerbation was in middle school. 1PPD smoker for the past 10 years. Admitted via the ER due to increasing SOB, congested cough with yellow sputum x 1 day. No travel history or sick contacts. No hemoptysis. No significant GI symptoms or environmental allergy symptoms. CXR: Clear - History Source History Provided By: Patient Limitations to Obtaining History: No Limitations - Past Medical History Pulmonary: Yes: Asthma, Bronchitis. No: Pneumonia, Previously Intubated, Pulmonary Embolus, Pulmonary Fibrosis, Sleep Apnea ...LMP: 11/13/18 ...: No - Past Surgical History Past Surgical History: Yes: None - Alcohol/Substance Use Hx Alcohol Use: No History of Substance Use: reports: None - Smoking History Smoking history: Never smoked Have you smoked in the past 12 months: No Aproximately how many cigarettes per day: 20 - Social History ADL: Independent History of Recent Travel: No Home Medications - Allergies Allergies/Adverse Reactions: Allergies Allergy/AdvReac Type Severity Reaction Status Date / Time rangel Allergy Verified 12/27/18 12:16 latex Allergy Verified 12/27/18 12:16 shellfish derived Allergy Verified 12/27/18 12:16 - Home Medications Home Medications: Ambulatory Orders Albuterol Sulfate Inhaler - [Ventolin Hfa Inhaler -] 1 - 2 inh PO Q4H PRN Review of Systems - Review of Systems Constitutional: reports: Malaise. denies: Chills, Fever, Night Sweats, Unintentional Wgt. Loss Eyes: reports: No Symptoms HENT: reports: No Symptoms Neck: reports: No Symptoms Cardiovascular: reports: Shortness of Breath. denies: Chest Pain, Edema, Palpitations Respiratory: reports: Cough, SOB, SOB on Exertion, Wheezing. denies: Hemoptysis , Orthopnea, PND, Snoring Gastrointestinal: reports: No Symptoms Genitourinary: reports: No Symptoms Breasts: reports: No Symptoms Reported Musculoskeletal: reports: No Symptoms Integumentary: reports: No Symptoms Neurological: reports: No Symptoms Endocrine: reports: No Symptoms Hematology/Lymphatic: reports: No Symptoms Psychiatric: reports: No Symptoms Physical Exam Vital Sings: Vital Signs Temperature 98.2 F 12/28/18 04:55 Pulse Rate 87 12/28/18 04:55 Respiratory Rate 22 H 12/28/18 04:55 Blood Pressure 129/70 12/28/18 04:55 O2 Sat by Pulse Oximetry (%) 99 12/28/18 05:30 Constitutional: Yes: Mild Distress Eyes: Yes: Conjunctiva Clear, EOM Intact HENT: Yes: Atraumatic, Normocephalic Neck: Yes: Supple, Trachea Midline Cardiovascular: Yes: Regular Rate and Rhythm Respiratory: Yes: Cough, Diminished, On Venti-Mask, Rhonchi, SOB, SOB on Exertion, Tachypnea, Wheezes. No: Accessory Muscle Use, Rales, Stridor ...Inspection: Yes: WNL ...Clubbing: No Gastrointestinal: Yes: WNL, Normal Bowel Sounds, Soft Renal/: Yes: WNL Musculoskeletal: Yes: WNL Extremities: Yes: WNL Edema: No Peripheral Pulses WNL: Yes Integumentary: Yes: WNL Neurological: Yes: WNL, Alert, Oriented ...Motor Strength: WNL Psychiatric: Yes: WNL, Alert, Oriented Labs: CBC, BMP 12/28/18 06:32 12/28/18 06:32 Imaging - Results Chest X-ray: Report Reviewed, Image Reviewed Problem List - Problems (1) Asthma Code(s): J45.909 - UNSPECIFIED ASTHMA, UNCOMPLICATED Qualifiers: Asthma persistence: intermittent Asthma complication type: with acute exacerbation (2) Asthma exacerbation Code(s): J45.901 - UNSPECIFIED ASTHMA WITH (ACUTE) EXACERBATION (3) Tobacco dependence due to cigarettes Code(s): F17.210 - NICOTINE DEPENDENCE, CIGARETTES, UNCOMPLICATED Assessment/Plan Medrol BD TX standing and PRN Singulair No smoking discussed at length Outpatient PFTs once stable as an outpatient Would monitor off ABX Daily PEF VTE prophylaxis Will follow Thank you. Dr Hartman
[2018-12-28] MEDS ORDERED: PNEUMOCOCCAL 23 VACCINE 0.5 ML VIAL IM ONE (10:00)
[2018-12-28] MEDS ORDERED: FLU VACCINE QUAD 60 MCG/0.5 ML (MDV 19-20) IM ONE (10:00)
[2018-12-28] MEDS ORDERED: methylPREDNISolone NA SUCC 40 MG/1 ML VIAL IVPUSH SCH (10:00)
[2018-12-28] MEDS ORDERED: PNEUMOC 13-VAL CONJ-DIP CRM/PF 0.5 ML DISP.SYRIN IM ONE (10:00)
[2018-12-28] MEDS: NICOTINE 7 MG/24 HOURS TOPICAL PATCH TD SCH (16:25)
[2018-12-29] MEDS: methylPREDNISolone NA SUCC 40 MG/1 ML VIAL IVPUSH SCH ×3 (01:30→21:16)
[2018-12-29] MEDS: ALBUTEROL SO4 0.083% IH SOL 2.5 MG/3 ML VIAL.NEB. NEB PRN (03:34)
[2018-12-29] MEDS: ALBUTEROL SO4 2.5/IPRATROPIUM 0.5 INH SOL 3 ML VIAL.NEB. NEB SCH ×4 (07:39→20:17)
--- NOTE | 2018-12-29 08:24 | PN ---
Progress Note, Physician - Current Medication List Current Medications: Active Medications Albuterol Sulfate (Ventolin 0.083% Nebulizer Soln -) 1 amp NEB Q6H PRN PRN Reason: SHORT OF BREATH/WHEEZING Last Admin: 12/29/18 03:34 Dose: 1 amp Albuterol/Ipratropium (Duoneb -) 1 amp NEB RQID CELIA Last Admin: 12/29/18 07:39 Dose: 1 amp Guaifenesin (Robitussin -) 10 ml PO Q6H PRN PRN Reason: COUGH Last Admin: 12/28/18 10:26 Dose: 10 ml Methylprednisolone Sodium Succinate (Solu-Medrol -) 40 mg IVPUSH Q8H-IV CELIA Last Admin: 12/29/18 01:30 Dose: 40 mg Nicotine (Nicoderm Patch -) 7 mg TD DAILY [facility] Last Admin: 12/28/18 16:25 Dose: 7 mg - Objective Vital Signs: Vital Signs Temperature 98.2 F 12/28/18 19:47 Pulse Rate 90 12/28/18 19:47 Respiratory Rate 22 H 12/28/18 21:00 Blood Pressure 133/69 12/28/18 19:47 O2 Sat by Pulse Oximetry (%) 100 12/28/18 21:00 Cardiovascular: Yes: Regular Rate and Rhythm Respiratory: Yes: Rhonchi Gastrointestinal: Yes: Normal Bowel Sounds, Soft Labs: CBC, BMP 12/28/18 06:32 12/28/18 06:32 Problem List - Problems (1) Asthma exacerbation Assessment/Plan: Continue Duonebs O2- Venturi Mask 50% Chest xray image reviewed Dexamethasone, Magnesium given in ED Solumederol IV w/tapBID Appreciate Pulm consult Peakflow Monitor CBC, BMP Monitor vitals HOB elevated Code(s): J45.901 - UNSPECIFIED ASTHMA WITH (ACUTE) EXACERBATION (2) Tobacco dependence due to cigarettes Assessment/Plan: Patient counseled on smoking cessation, patient is amendable Nicoderm Patch Code(s): F17.210 - NICOTINE DEPENDENCE, CIGARETTES, UNCOMPLICATED
[2018-12-29] MEDS ORDERED: PT OWN MED DRAWER 7, Y5N ONE (09:22)
[2018-12-29] MEDS: guaiFENesin 200 MG/10 ML 10 ML UNIT-DOSE CUPS PO PRN (09:31)
[2018-12-29] MEDS: NICOTINE 7 MG/24 HOURS TOPICAL PATCH TD SCH (09:31)
[2018-12-29] MEDS: HEPARIN NA (PORCINE) 5,000 UNITS/ML 1ML VIAL SQ SCH ×2 (12:11→21:17)
--- NOTE | 2018-12-29 13:03 | PN ---
Progress Note (short form) - Note Progress Note: PULMONARY States breathing better. Less cough and wheezing. No fevers. Peak flow done at bedside 250. Vital Signs Period Temp Pulse Resp BP Sys/Martinez Pulse Ox Last 24 Hr 98.2 F-98.5 F 82-91 20-22 122-133/55-74 97-100 Gen: NAD at rest Heart: RRR Lung: scattered rhonchi, wheezes Abd: soft, nontender Ext: no edema CBC, BMP 12/28/18 06:32 12/28/18 06:32 Active Medications Albuterol Sulfate (Ventolin 0.083% Nebulizer Soln -) 1 amp NEB Q6H PRN PRN Reason: SHORT OF BREATH/WHEEZING Last Admin: 12/29/18 03:34 Dose: 1 amp Albuterol/Ipratropium (Duoneb -) 1 amp NEB RQID CELIA Last Admin: 12/29/18 11:30 Dose: 1 amp Guaifenesin (Robitussin -) 10 ml PO Q6H PRN PRN Reason: COUGH Last Admin: 12/29/18 09:31 Dose: 10 ml Heparin Sodium (Porcine) (Heparin -) 5,000 unit SQ BID CELIA Last Admin: 12/29/18 12:11 Dose: 5,000 unit Methylprednisolone Sodium Succinate (Solu-Medrol -) 40 mg IVPUSH BID CELIA Montelukast Sodium (Singulair -) 10 mg PO HS [facility] Nicotine (Nicoderm Patch -) 7 mg TD DAILY [facility] Last Admin: 12/29/18 09:31 Dose: 7 mg A/P Acute Asthma Exacerbation Anemia Smoker - continue medrol at current dose - can likely change steroids to PO prednisone 40mg daily in AM if continues to improve - singulair - inhaled bronchodilators - monitor peak flow - outpt PFTs - DVT prophylaxis - smoking cessation
[2018-12-29] MEDS: MONTELUKAST NA 10 MG TABLET PO SCH (21:17)
[2018-12-30] MEDS: ALBUTEROL SO4 2.5/IPRATROPIUM 0.5 INH SOL 3 ML VIAL.NEB. NEB SCH ×4 (08:38→20:19)
--- NOTE | 2018-12-30 08:51 | PN ---
Progress Note (short form) - Note Progress Note: States breathing is about the same as yesterday. Still with some wheezing. Peak flow pending. Intake & Output 12/27/18 12/28/18 12/29/18 12/30/18 23:59 23:59 23:59 23:59 Intake Total 540 1300 120 Balance 540 1300 120 Weight 180 lb 197 lb Last Vital Signs Temp Pulse Resp BP Pulse Ox 99.0 F 77 18 125/71 99 12/30/18 05:00 12/30/18 05:00 12/30/18 05:00 12/30/18 05:00 12/29/18 21:00 Active Medications Albuterol Sulfate (Ventolin 0.083% Nebulizer Soln -) 1 amp NEB Q6H PRN PRN Reason: SHORT OF BREATH/WHEEZING Last Admin: 12/29/18 03:34 Dose: 1 amp Albuterol/Ipratropium (Duoneb -) 1 amp NEB RQID [facility] Last Admin: 12/30/18 08:38 Dose: 1 amp Guaifenesin (Robitussin -) 10 ml PO Q6H PRN PRN Reason: COUGH Last Admin: 12/29/18 09:31 Dose: 10 ml Heparin Sodium (Porcine) (Heparin -) 5,000 unit SQ BID [facility] Last Admin: 12/29/18 21:17 Dose: 5,000 unit Methylprednisolone Sodium Succinate (Solu-Medrol -) 40 mg IVPUSH BID [facility] Last Admin: 12/29/18 21:16 Dose: 40 mg Montelukast Sodium (Singulair -) 10 mg PO HS [facility] Last Admin: 12/29/18 21:17 Dose: 10 mg Nicotine (Nicoderm Patch -) 7 mg TD DAILY [facility] Last Admin: 12/29/18 09:31 Dose: 7 mg Gen: NAD at rest Heart: RRR Lung: Bilateral rhonchi and wheezing Abd: soft, nontender Ext: no edema A/P Acute Asthma Exacerbation Anemia Smoker - continue medrol at current dose - can likely change steroids to PO prednisone 40mg daily in AM if she is improved - singulair - inhaled bronchodilators - monitor peak flow - outpt PFTs - DVT prophylaxis - smoking cessation Dr Hartman Problem List - Problems (1) Asthma Code(s): J45.909 - UNSPECIFIED ASTHMA, UNCOMPLICATED Qualifiers: Asthma persistence: intermittent Asthma complication type: with acute exacerbation (2) Asthma exacerbation Code(s): J45.901 - UNSPECIFIED ASTHMA WITH (ACUTE) EXACERBATION (3) Tobacco dependence due to cigarettes Code(s): F17.210 - NICOTINE DEPENDENCE, CIGARETTES, UNCOMPLICATED
[2018-12-30] MEDS: methylPREDNISolone NA SUCC 40 MG/1 ML VIAL IVPUSH SCH ×2 (11:25→21:45)
[2018-12-30] MEDS: HEPARIN NA (PORCINE) 5,000 UNITS/ML 1ML VIAL SQ SCH ×2 (11:46→21:45)
[2018-12-30] MEDS: guaiFENesin 200 MG/10 ML 10 ML UNIT-DOSE CUPS PO PRN (11:48)
[2018-12-30] MEDS: NICOTINE 7 MG/24 HOURS TOPICAL PATCH TD SCH (11:49)
--- NOTE | 2018-12-30 12:54 | PN ---
Progress Note, Physician Chief Complaint: patient seen and examined says her breathing is better - Current Medication List Current Medications: Active Medications Albuterol Sulfate (Ventolin 0.083% Nebulizer Soln -) 1 amp NEB Q6H PRN PRN Reason: SHORT OF BREATH/WHEEZING Last Admin: 12/29/18 03:34 Dose: 1 amp Albuterol/Ipratropium (Duoneb -) 1 amp NEB RQID [facility] Last Admin: 12/30/18 11:30 Dose: 1 amp Guaifenesin (Robitussin -) 10 ml PO Q6H PRN PRN Reason: COUGH Last Admin: 12/30/18 11:48 Dose: 10 ml Heparin Sodium (Porcine) (Heparin -) 5,000 unit SQ BID [facility] Last Admin: 12/30/18 11:46 Dose: 5,000 unit Methylprednisolone Sodium Succinate (Solu-Medrol -) 40 mg IVPUSH BID [facility] Last Admin: 12/30/18 11:25 Dose: 40 mg Montelukast Sodium (Singulair -) 10 mg PO HS [facility] Last Admin: 12/29/18 21:17 Dose: 10 mg Nicotine (Nicoderm Patch -) 7 mg TD DAILY [facility] Last Admin: 12/30/18 11:49 Dose: 7 mg - Objective Vital Signs: Vital Signs Temperature 99.0 F 12/30/18 05:00 Pulse Rate 77 12/30/18 05:00 Respiratory Rate 18 12/30/18 05:00 Blood Pressure 125/71 12/30/18 05:00 O2 Sat by Pulse Oximetry (%) 99 12/29/18 21:00 Constitutional: Yes: Calm Cardiovascular: Yes: Tachycardia, S1, S2 Respiratory: Yes: On Nasal O2, Rhonchi Gastrointestinal: Yes: Normal Bowel Sounds, Soft Edema: No Neurological: Yes: Alert, Oriented Labs: CBC, BMP 12/28/18 06:32 12/28/18 06:32 Problem List - Problems (1) Asthma exacerbation Assessment/Plan: iv solumedrol duonebs oxygen smoking cessation dvt ppx Code(s): J45.901 - UNSPECIFIED ASTHMA WITH (ACUTE) EXACERBATION
[2018-12-30] MEDS ORDERED: PT OWN MED DRAWER 7, Y5N ONE (19:35)
[2018-12-30] MEDS: MONTELUKAST NA 10 MG TABLET PO SCH (21:45)
[2018-12-31] MEDS: ALBUTEROL SO4 2.5/IPRATROPIUM 0.5 INH SOL 3 ML VIAL.NEB. NEB SCH ×2 (08:39→12:47)
[2018-12-31] MEDS ORDERED: PT OWN MED DRAWER 7, Y5N ONE ×2 (09:03→09:42)
[2018-12-31] MEDS: guaiFENesin 200 MG/10 ML 10 ML UNIT-DOSE CUPS PO PRN (09:53)
[2018-12-31] MEDS: NICOTINE 7 MG/24 HOURS TOPICAL PATCH TD SCH (09:53)
[2018-12-31] MEDS: HEPARIN NA (PORCINE) 5,000 UNITS/ML 1ML VIAL SQ SCH (09:53)
[2018-12-31] MEDS: methylPREDNISolone NA SUCC 40 MG/1 ML VIAL IVPUSH SCH (09:53)
[2018-12-31 12:13] VITALS: BP 151/79; PULSE 79; TEMP 98.2
--- NOTE | 2018-12-31 14:33 | PN ---
Progress Note, Physician History of Present Illness: pulmonary alert,feeling better,states breathing back to baseline. - Current Medication List Current Medications: Active Medications Albuterol Sulfate (Ventolin 0.083% Nebulizer Soln -) 1 amp NEB Q6H PRN PRN Reason: SHORT OF BREATH/WHEEZING Last Admin: 12/29/18 03:34 Dose: 1 amp Albuterol/Ipratropium (Duoneb -) 1 amp NEB RQID [facility] Last Admin: 12/31/18 12:47 Dose: 1 amp Guaifenesin (Robitussin -) 10 ml PO Q6H PRN PRN Reason: COUGH Last Admin: 12/31/18 09:53 Dose: 10 ml Heparin Sodium (Porcine) (Heparin -) 5,000 unit SQ BID [facility] Last Admin: 12/31/18 09:53 Dose: 5,000 unit Methylprednisolone Sodium Succinate (Solu-Medrol -) 40 mg IVPUSH BID [facility] Last Admin: 12/31/18 09:53 Dose: 40 mg Montelukast Sodium (Singulair -) 10 mg PO HS [facility] Last Admin: 12/30/18 21:45 Dose: 10 mg Nicotine (Nicoderm Patch -) 7 mg TD DAILY [facility] Last Admin: 12/31/18 09:53 Dose: 7 mg - Objective Vital Signs: Vital Signs Temperature 98.2 F 12/31/18 10:00 Pulse Rate 79 12/31/18 10:00 Respiratory Rate 20 12/31/18 10:00 Blood Pressure 151/79 12/31/18 10:00 O2 Sat by Pulse Oximetry (%) 98 12/31/18 09:00 Constitutional: Yes: Well Nourished, Calm Eyes: Yes: WNL HENT: Yes: WNL Neck: Yes: WNL Cardiovascular: Yes: Regular Rate and Rhythm, S1, S2 Respiratory: Yes: Wheezes (few scattered wheezes) Gastrointestinal: Yes: Normal Bowel Sounds, Soft Extremities: Yes: WNL Edema: No Labs: Assessment/Plan A/P Acute Asthma Exacerbation Anemia Smoker - - prednisone 60mg daily with taper - singulair - symbicort 160/4.5 2 puffs bid as outpatient - inhaled bronchodilators - monitor peak flow as outpatient - outpt PFTs - DVT prophylaxis - smoking cessation DR TINOCO Problem List - Problems (1) Asthma Code(s): J45.909 - UNSPECIFIED ASTHMA, UNCOMPLICATED Qualifiers: Asthma persistence: intermittent Asthma complication type: with acute exacerbation (2) Asthma exacerbation Code(s): J45.901 - UNSPECIFIED ASTHMA WITH (ACUTE) EXACERBATION (3) Tobacco dependence due to cigarettes Code(s): F17.210 - NICOTINE DEPENDENCE, CIGARETTES, UNCOMPLICATED
--- NOTE | 2018-12-31 15:04 | DS ---
Physical Examination Vital Signs: Vital Signs Temperature 98.2 F 12/31/18 10:00 Pulse Rate 79 12/31/18 10:00 Respiratory Rate 20 12/31/18 10:00 Blood Pressure 151/79 12/31/18 10:00 O2 Sat by Pulse Oximetry (%) 98 12/31/18 09:00 Constitutional: Yes: Calm Cardiovascular: Yes: Regular Rate and Rhythm, S1, S2 Respiratory: Yes: CTA Bilaterally Gastrointestinal: Yes: Normal Bowel Sounds, Soft Edema: No Neurological: Yes: Alert, Oriented Labs: CBC, BMP 12/28/18 06:32 12/28/18 06:32 Discharge Summary Problems reviewed: Yes Reason For Visit: HYPOXIA,ASTHMA Current Active Problems Asthma (Acute) Asthma exacerbation (Acute) Tobacco dependence due to cigarettes (Acute) Hospital Course: SOB, Wheezing, Chest Tightness History of Present Illness: This is a 23 y/o woman with a PMHx of Asthma, Tobacco Use 1PPD x 10 years. Who presents to the ED with complaints of SOB and wheezing since 10PM last night. Patient reports she used her albuterol inhaler multiple times, with temporary relief, but her symptoms re-appeared. She reports having wheezing, SOB, and a productive cough with yellow phlegm. She has had asthma for the past 20 years, uses albuterol inhaler at home (has not used steroids), and has never been hospitalized or intubated before. Patient denies any recent illnesses, fevers, chills, abdominal pain, chest pain , palpitations, nausea, vomiting, diarrhea, constipation, abdominal pain, dysuria, hematuria, or polyuria. admitted for shortness of breath got iv medrol and now change to po prednisone albuterol nebulizer much improved Condition: Guarded - Instructions Referrals: Chastity Edmond MD [Primary Care Provider] - Disposition: HOME - Home Medications Comprehensive Discharge Medication List: Ambulatory Orders Albuterol Sulfate Inhaler - [Ventolin Hfa Inhaler -] 1 - 2 inh PO Q4H PRN
== END 2018-12-31 15:22 | disposition home or self-care (01) | DRG 203 ==
LOC: JER 12:11 → JERBED 18:13 → J8W 12-28 04:25
PROVIDERS: ADMIT Internal Medicine; ATTEND Family Medicine
DX: J45.901 Unspecified asthma with (acute) exacerbation (principal); F17.210 Nicotine dependence, cigarettes, uncomplicated; D64.9 Anemia, unspecified
CPT/HCPCS: 36415; 71046-TC-FY; 80048; 80053; 84703; 85025; 90732; 94150; 94640; 99285-25; G0008; G0009; J1644; Q2036

== ENCOUNTER 2019-09-27 17:09 | Emergency (ER) | payer BC ==
[2019-09-27 17:17] VITALS: BP 138/80; PULSE 91; TEMP 97.8; BMI 30.4
[2019-09-27] MEDS ORDERED: predniSONE 20 MG TABLET (UD) PO ONE (17:38)
[2019-09-27] MEDS ORDERED: ALBUTEROL SO4 2.5/IPRATROPIUM 0.5 INH SOL 3 ML VIAL.NEB. NEB ONE (17:42)
[2019-09-27] MEDS ORDERED: predniSONE 20 MG TABLET (UD) ONE (17:42)
--- NOTE | 2019-09-27 17:43 | PDOC ---
Rapid Medical Evaluation Chief Complaint: Asthma Time Seen by Provider: 09/27/19 17:16 Medical Evaluation: Allergies Allergy/AdvReac Type Severity Reaction Status Date / Time rangel Allergy Verified 09/27/19 17:14 latex Allergy Verified 09/27/19 17:14 shellfish derived Allergy Verified 09/27/19 17:14
[2019-09-27] MEDS: ALBUTEROL SO4 2.5/IPRATROPIUM 0.5 INH SOL 3 ML VIAL.NEB. NEB SCH ×3 (17:45→18:15)
--- NOTE | 2019-09-27 18:11 | PDOC ---
History of Present Illness - General Chief Complaint: Asthma Stated Complaint: ASTHMA Time Seen by Provider: 09/27/19 17:16 History Source: Patient Exam Limitations: No Limitations - History of Present Illness Initial Comments: 09/27/19 18:07 Patient is a 24-year-old female with a history of asthma, genital herpes, and GI issues who presents to the ED with complaint that her asthma has been bothering her for the last 2 weeks. The patient is a smoker and continues to smoke 1 pack of cigarettes per day. She does admit to smoking inside the house as does her mother. She states she has been using her albuterol inhaler but it has not been helping her a lot. She denies any fevers or chills. She denies any cough. She denies any recent travel or COVID contacts. Past History - Medical History Allergies/Adverse Reactions: Allergies Allergy/AdvReac Type Severity Reaction Status Date / Time rangel Allergy Verified 09/27/19 17:14 latex Allergy Verified 09/27/19 17:14 shellfish derived Allergy Verified 09/27/19 17:14 Home Medications: Ambulatory Orders Albuterol 0.083% Nebulizer Hafsa [Ventolin 0.083% Nebulizer Soln -] 1 amp NEB Q6H PRN #30 amp 12/31/18 Albuterol Sulfate Inhaler - [Ventolin HFA Inhaler -] 1 - 2 inh PO Q4H PRN #1 inhaler 12/31/18 Budesonide/Formeterol Fumarate [SYMBICORT 160/4.5mcg -] 1 inh PO BID #1 cannister 12/31/18 Montelukast Na [Singulair -] 10 mg PO HS #30 tablet 12/31/18 Nicotine Patch [Nicoderm Patch -] 7 mg TD DAILY #14 patch 12/31/18 predniSONE [Deltasone -] 20 mg PO DAILY #30 tablet 12/31/18 Hydrocortisone Acetate [Anusol Hc Suppository -] 25 mg RC BID #28 supp.rect 07/18/19 Albuterol 0.083% Nebulizer Hafsa [Ventolin 0.083% Nebulizer Soln -] 1 neb NEB Q4H PRN #100 vial 09/27/19 Albuterol Sulfate [Albuterol Sulfate Hfa] 2 puff IH Q6H PRN #1 hfa.aer.ad 09/27/19 predniSONE [Deltasone -] 60 mg PO DAILY 4 Days #12 tablet 09/27/19 Asthma: Yes COPD: No CHF: No - Reproductive History (#): 1 Para: 0 Therapeutic (s) & number: Yes (2 YEARS AGO) - Immunization History Immunization Up to Date: Yes - Psycho-Social/Smoking History Smoking History: Current every day smoker Have you smoked in the past 12 months: No Number of Cigarettes Smoked Daily: 10 Information on smoking cessation initiated: No 'Breaking Loose' booklet given: 12/28/18 - Substance Abuse Hx (Audit-C & DAST Scrn) How often the patient has a drink containing alcohol: Never Score: In Men: 4 or > Positive; In Women: 3 or > Positive: 0 Screen Result (Pos requires Nsg. Audit-10AR): Negative In the last yr the pt used illegal drug/Rx for NonMed reason: No Score: Yes response is considered Positive: 0 Screen Result (Positive result requires Nsg. DAST-10): Negative Review of Systems - Review of Systems Comments:: 09/27/19 18:08 - Review of Systems Able to Perform ROS?: Yes Constitutional: No: Fever, Chills, Loss of Appetite, Night Sweats, Weakness HEENTM: No: Eye Pain, Vision changes, Ear Pain, Throat Pain, Throat Swelling, Mouth Pain, Difficulty Swallowing Respiratory: No: Cough, Shortness of Breath, Sputum Production; positive: Wheez ing, asthma exacerbation Cardiac (ROS): No: Chest Pain, Chest Tightness, Palpitations, Irregular Heart Beat, Edema ABD/GI: No: Nausea, Vomiting, Abdominal Pain, Diarrhea : No Dysuria, No Hematuria, No Frequency, No Urgency Musculoskeletal: No: Muscle Pain, Back Pain, Joint Pain, Muscle Weakness, Neck Pain Integumentary: No: Lesions, Rash Neurological: No: Headache, Numbness, Tingling, Weakness, Speech Difficulties *Physical Exam - Vital Signs Last Vital Signs Temp Pulse Resp BP Pulse Ox 97.8 F 91 H 16 138/80 99 09/27/19 17:14 09/27/19 17:14 09/27/19 17:14 09/27/19 17:14 09/27/19 17:14 - Physical Exam 09/27/19 18:08 - Physical Exam General Appearance: Nourished, Appropriately Dressed, No Distress HEENT: EOMI, Normal Voice, No Pharyngeal Erythema, No Muffled/Hoarse voice, No Tonsillar Exudate, No Tonsillar Erythema, No Nasal Congestion, No Rhinorrhea, Hearing Grossly Normal, TMs Normal, No TM Bulging, No TM Dullness, No TM Erythema Neck: Supple, No Lymphadenopathy (R), No Lymphadenopathy (L), No Rigidity, No Decreased range of motion Respiratory/Chest: Diffuse wheezes appreciated bilaterally, left greater than right, no retractions appreciated. No rales or rhonchi appreciated. Cardiovascular: Regular Rhythm, Regular Rate, S1, S2 Gastrointestinal/Abdominal: Normal Bowel Sounds, Soft. Non-tender, No Guarding, No Rebound, No Rigidity Musculoskeletal: Normal Inspection. No Decreased Range of Motion Extremity: Normal Capillary Refill, Normal Inspection Integumentary: Normal Color, Dry. No Rash Neurologic: philosophy and religion instructor II-XII NML intact, Fully Oriented, Alert, Normal Mood/Affect, Normal Response ED Treatment Course - Medications Given in the ED: ED Medications Discontinued Medications Generic Name Dose Route Start Last Admin Trade Name Jongq PRN Reason Stop Dose Admin Prednisone 60 mg 09/27/19 17:38 09/27/19 17:46 Deltasone - PO 09/27/19 17:39 60 mg ONCE ONE Administration Medical Decision Making - Medical Decision Making 09/27/19 18:10 Assessment: Patient is a 24-year-old female with an asthma exacerbation. Plan: -DuoNeb's x4 -Prednisone p.o. -Will reassess 09/27/19 18:19 The patient is feeling much better after her nebulizer treatments and is no longer wheezing. She now has clear lungs bilaterally. We will discharge the patient with an albuterol MDI, albuterol for her nebulizer machine and a prescription for prednisone x4 more days starting tomorrow. She will follow-up with her primary doctor within 1 to 2 days for repeat evaluation. She understands and agrees with this treatment plan and she is stable for discharge. Discharge - Discharge Information Problems reviewed: Yes Clinical Impression/Diagnosis: Asthma exacerbation Qualifiers: Asthma severity: unspecified severity Asthma persistence: unspecified Qualified Code(s): J45.901 - Unspecified asthma with (acute) exacerbation Condition: Stable Disposition: HOME - Additional Discharge Information Prescriptions: Albuterol Sulfate [Albuterol Sulfate Hfa] 2 puff IH Q6H PRN #1 hfa.aer.ad PRN Reason: Wheezing predniSONE [Deltasone -] 60 mg PO DAILY 4 Days #12 tablet Albuterol 0.083% Nebulizer Hafsa [Ventolin 0.083% Nebulizer Soln -] 1 neb NEB Q4H PRN #100 vial PRN Reason: Wheezing - Follow up/Referral Referrals: Chastity Edmond MD [Primary Care Provider] - 2 Days - Patient Discharge Instructions Patient Printed Discharge Instructions: Asthma -- Adult Additional Instructions: Be sure to take your prednisone as prescribed and start on 09/28/2019 as your first dose was given to you today in the ER. Use your albuterol every 4 hours as needed either inhaler or nebulizer treatment. Be sure to follow-up with your primary doctor within 1 to 2 days for repeat evaluation. Seriously consider quitting smoking as this will worsen your condition. - Post Discharge Activity Work/Back to School Note: Back to Work
== END 2019-09-27 18:27 | disposition home or self-care (01) ==
LOC: JERFT 17:09
PROC: 3E0F7GC Introduction of Other Therapeutic Substance into Respiratory Tract, Via Natural or Artificial Opening (ICD-10-PCS; principal; 2019-09-27)
DX: J45.901 Unspecified asthma with (acute) exacerbation (principal)
CPT/HCPCS: 99285-25

== ENCOUNTER 2019-09-29 14:44 | Emergency (ER) | payer BC ==
[2019-09-29 14:58] VITALS: BP 130/83; PULSE 92; TEMP 98.3; BMI 30.4
--- NOTE | 2019-09-29 14:58 | PDOC ---
Rapid Medical Evaluation Time Seen by Provider: 09/29/19 14:53 Medical Evaluation: Allergies Allergy/AdvReac Type Severity Reaction Status Date / Time rangel Allergy Verified 09/27/19 17:14 latex Allergy Verified 09/27/19 17:14 shellfish derived Allergy Verified 09/27/19 17:14 09/29/19 14:54 I have performed a brief in-person evaluation of this patient. CC: dark and "foamy" urine; taking Flagyl for "abdominal bloating." PE: ABD SNTND. No CVAT. [employer] Developer deferred. Orders: urine Patient will proceed to ED for further evaluation. 09/29/19 14:57 Discharge Disposition - Diagnosis Vaginal discharge - Referrals - Patient Instructions - Post Discharge Activity
--- NOTE | 2019-09-29 15:15 | PDOC ---
History of Present Illness - General Chief Complaint: Urinary Problem Stated Complaint: URINARY PROBLEM Time Seen by Provider: 09/29/19 14:53 History Source: Patient Exam Limitations: Clinical Condition - History of Present Illness Initial Comments: 09/29/19 15:11 Patient with no significant past medical history present with complaint of 3-day history of dark urine with milky looking urine which she checked on [employer] and was found that symptoms might be caused by kidney problem or diabetes so patient was concerned and came to the ER. Denies urinary frequency, dysuria, burning with urination, vaginal discharge, vaginal bleeding, nausea vomiting. LMP September 02. Patient sexually active with one partner. Patient not on control. Patient requests for check on glucose and also wants to do a GC and chlamydia tests. Denies any other symptoms. Patient has not taken anything for symptoms Is this a multiple visit Asthma Patient?: No Timing/Duration: other (3 days) Past History - Medical History Allergies/Adverse Reactions: Allergies Allergy/AdvReac Type Severity Reaction Status Date / Time rangel Allergy Verified 09/29/19 14:59 latex Allergy Verified 09/29/19 14:59 shellfish derived Allergy Verified 09/29/19 14:59 Home Medications: Ambulatory Orders Albuterol 0.083% Nebulizer Hafsa [Ventolin 0.083% Nebulizer Soln -] 1 amp NEB Q6H PRN #30 amp 12/31/18 Albuterol Sulfate Inhaler - [Ventolin HFA Inhaler -] 1 - 2 inh PO Q4H PRN #1 inhaler 12/31/18 Budesonide/Formeterol Fumarate [SYMBICORT 160/4.5mcg -] 1 inh PO BID #1 cannister 12/31/18 Montelukast Na [Singulair -] 10 mg PO HS #30 tablet 12/31/18 Nicotine Patch [Nicoderm Patch -] 7 mg TD DAILY #14 patch 12/31/18 predniSONE [Deltasone -] 20 mg PO DAILY #30 tablet 12/31/18 Hydrocortisone Acetate [Anusol Hc Suppository -] 25 mg RC BID #28 supp.rect 07/18/19 Albuterol 0.083% Nebulizer Hafsa [Ventolin 0.083% Nebulizer Soln -] 1 neb NEB Q4H PRN #100 vial 09/27/19 Albuterol Sulfate [Albuterol Sulfate Hfa] 2 puff IH Q6H PRN #1 hfa.aer.ad 09/13 07/03 predniSONE [Deltasone -] 60 mg PO DAILY 4 Days #12 tablet 09/27/19 Asthma: Yes COPD: No CHF: No - Reproductive History (#): 1 Para: 0 Therapeutic (s) & number: Yes (2 YEARS AGO) - Immunization History Immunization Up to Date: Yes - Psycho-Social/Smoking History Smoking History: Never smoked Have you smoked in the past 12 months: No Number of Cigarettes Smoked Daily: 10 Information on smoking cessation initiated: No 'Breaking Loose' booklet given: 12/28/18 - Substance Abuse Hx (Audit-C & DAST Scrn) How often the patient has a drink containing alcohol: Never Score: In Men: 4 or > Positive; In Women: 3 or > Positive: 0 Screen Result (Pos requires Nsg. Audit-10AR): Negative In the last yr the pt used illegal drug/Rx for NonMed reason: No Score: Yes response is considered Positive: 0 Screen Result (Positive result requires Nsg. DAST-10): Negative Review of Systems - Review of Systems Able to Perform ROS?: Yes Is the patient limited Korean proficient: No Constitutional: No: Chills, Fever, Malaise HEENTM: No: Symptoms Reported, See HPI, Eye Pain, Blurred Vision, Tearing, Recent change in vision, Double Vision, Cataracts, Ear Pain, Ocular Prothesis, Ear Discharge, Nose Pain, Nose Congestion, Tinnitus, Nose Bleeding, Hearing Loss, Throat Pain, Throat Swelling, Mouth Pain, Dental Problems, Difficulty Swallowing, Mouth Swelling, Other Respiratory: No: Symptoms reported, See HPI, Cough, Orthopnea, Shortness of Breath, SOB with Exertion, SOB at Rest, Stridor, Wheezing, Productive cough, Hemoptysis, Other Cardiac (ROS): No: Symptoms Reported ABD/GI: No: Symptoms Reported, Nausea, Vomiting, Abdominal cramping : Yes: Symptoms Reported, See HPI, Other (Dark urine). No: Burning, Dysuria, Discharge, Frequency, Flank Pain, Hematuria, Incontinence, Pain, Urgency Musculoskeletal: No: Symptoms Reported, Back Pain All Other Systems: Reviewed and Negative *Physical Exam - Vital Signs Last Vital Signs Temp Pulse Resp BP Pulse Ox 98.3 F 92 H 18 130/83 98 09/29/19 14:53 09/29/19 14:53 09/29/19 14:53 09/29/19 14:53 09/29/19 14:53 - Physical Exam General Appearance: Yes: Nourished, Appropriately Dressed. No: Apparent Distress HEENT: positive: Normal ENT Inspection Neck: positive: Supple Respiratory/Chest: positive: Lungs Clear, Normal Breath Sounds. negative: Chest Tender, Respiratory Distress, Accessory Muscle Use Cardiovascular: positive: Regular Rhythm, Regular Rate Gastrointestinal/Abdominal: positive: Normal Bowel Sounds, Flat. negative: Tender Musculoskeletal: positive: Normal Inspection. negative: CVA Tenderness Extremity: positive: Normal Capillary Refill, Normal Inspection, Normal Range of Motion Integumentary: positive: Normal Color Neurologic: positive: Fully Oriented, Alert, Normal Mood/Affect, Normal Response, Motor Strength 5/5 Medical Decision Making - Medical Decision Making 09/29/19 15:13 Patient with no significant past medical history present with complaint of 3-day history of dark urine with milky looking urine which she checked on [employer] and was found that symptoms might be caused by kidney problem or diabetes so patient was concerned and came to the ER. Denies urinary frequency, dysuria, burning with urination, vaginal discharge, vaginal bleeding, nausea vomiting. LMP September 02. Patient sexually active with one partner. Patient not on control. Patient requests for check on glucose and also wants to do a GC and chlamydia tests. Denies any other symptoms. Patient has not taken anything for symptoms Clinical exam unremarkable. Patient report does not drink a lot of water and symptoms likely caused by dehydration from lack of drinking enough water. UA and urine culture ordered. Urine GC and chlamydia tests ordered. Fingerstick ordered to check blood glucose. Treat based on urine results 09/29/19 16:50 UA within normal limit shows no leukocytosis or WBCs. Blood fingerstick is 82. Patient is symptomatic and stable for discharge pending GC and chlamydia and urine culture test. Patient advised to increase fluid intake and follow-up with SELF PAY SPECIALIST Discharge - Discharge Information Problems reviewed: Yes Clinical Impression/Diagnosis: Dark brown urine, Vaginal discharge Condition: Stable Disposition: HOME - Admission No - Follow up/Referral Referrals: Chastity Edmond MD [Primary Care Provider] - - Patient Discharge Instructions Additional Instructions: Your urine test is normal. Your blood glucose level is normal. Urine drug is likely from concentrated urine due to not drinking of water. Increase your intake. Follow-up with your SELF PAY SPECIALIST - Post Discharge Activity
[2019-09-29 15:25] LABS: URINE APPEARANCE CLEAR; URINE BILIRUBIN NEGATIVE (NEGATIVE); URINE COLOR YELLOW; URINE GLUCOSE (UA) NEGATIVE (NEGATIVE); URINE KETONE NEGATIVE (NEGATIVE); URINE LEUK ESTERASE NEGATIVE (NEGATIVE); URINE NITRITE NEGATIVE (NEGATIVE); URINE PROTEIN NEGATIVE (NEGATIVE); URINE UROBILINOGEN 0.2 mg/dL (0.2-1.0)
[2019-09-29 15:27] LABS: HCG,QUALITATIVE URINE Negative
== END 2019-09-29 15:53 | disposition home or self-care (01) ==
LOC: JERFT 14:44
DX: R82.998 Other abnormal findings in urine (principal); N89.8 Other specified noninflammatory disorders of vagina
CPT/HCPCS: 36415; 81003; 82962; 84703; 87086; 87186; 87491; 87591; 99282-25

== ENCOUNTER 2019-10-16 05:44 | Emergency (ER) | payer BC ==
[2019-10-16 06:33] VITALS: BP 123/76; PULSE 73; TEMP 98.9; BMI 25.8
--- NOTE | 2019-10-16 07:03 | PDOC ---
History of Present Illness <Rowena Garcia - Last Filed: 10/16/19 08:32> - General History Source: Patient Exam Limitations: No Limitations - History of Present Illness Initial Comments: 10/16/19 07:02 Lesia Brar is a 24F with PMH asthma and 1pppd smoking presenting with breast soreness. Patient reports having a few days of specifically nipple soreness bilaterally, triggered when she pinches her nipples. Usually has nipple pain during menses, but LMP 2 weeks ago, denies any sexual activity since May, denies risk, denies vaginal bleeding or discharge. Denies nipple discharge, breast tenderness, vision changes, temperature sensitivity, chest pain, palpitations, N/V/C/D, abd pain, cough, urinary symptoms. Has OBGYN appointment in 3 days. Here because she says she was concerned about nipple pain after Googling that it could be breast cancer. Smokes 1ppd, has asthma but uses inhaler, admitted once for exacerbation. No PSH. Meds: albuterol inhaler Denies alcohol/drugs <Ba Morales - Last Filed: 10/16/19 08:52> - General Chief Complaint: Pain Stated Complaint: MAMMARY GLAND SORENESS Time Seen by Provider: 10/16/19 07:02 Past History <Rowena Garcia - Last Filed: 10/16/19 08:32> - Medical History Asthma: Yes COPD: No CHF: No - Reproductive History (#): 1 Para: 0 Therapeutic (s) & number: Yes (2 YEARS AGO) - Immunization History Immunization Up to Date: Yes - Psycho-Social/Smoking History Smoking History: Current every day smoker Have you smoked in the past 12 months: No Number of Cigarettes Smoked Daily: 5 Information on smoking cessation initiated: No 'Breaking Loose' booklet given: 12/28/18 - Substance Abuse Hx (Audit-C & DAST Scrn) How often the patient has a drink containing alcohol: Never Score: In Men: 4 or > Positive; In Women: 3 or > Positive: 0 Screen Result (Pos requires Nsg. Audit-10AR): Negative In the last yr the pt used illegal drug/Rx for NonMed reason: No Score: Yes response is considered Positive: 0 Screen Result (Positive result requires Nsg. DAST-10): Negative <Ba Morales - Last Filed: 10/16/19 08:52> - Medical History Allergies/Adverse Reactions: Allergies Allergy/AdvReac Type Severity Reaction Status Date / Time rangel Allergy Verified 10/16/19 06:30 latex Allergy Verified 10/16/19 06:30 shellfish derived Allergy Verified 10/16/19 06:30 Home Medications: Ambulatory Orders Albuterol 0.083% Nebulizer Hafsa [Ventolin 0.083% Nebulizer Soln -] 1 amp NEB Q6H PRN #30 amp 12/31/18 Albuterol Sulfate Inhaler - [Ventolin HFA Inhaler -] 1 - 2 inh PO Q4H PRN #1 inhaler 12/31/18 Budesonide/Formeterol Fumarate [SYMBICORT 160/4.5mcg -] 1 inh PO BID #1 cannister 12/31/18 Montelukast Na [Singulair -] 10 mg PO HS #30 tablet 12/31/18 Nicotine Patch [Nicoderm Patch -] 7 mg TD DAILY #14 patch 12/31/18 predniSONE [Deltasone -] 20 mg PO DAILY #30 tablet 12/31/18 Hydrocortisone Acetate [Anusol Hc Suppository -] 25 mg RC BID #28 supp.rect 07/18/19 Albuterol 0.083% Nebulizer Hafsa [Ventolin 0.083% Nebulizer Soln -] 1 neb NEB Q4H PRN #100 vial 09/27/19 Albuterol Sulfate [Albuterol Sulfate Hfa] 2 puff IH Q6H PRN #1 hfa.aer.ad 09/27/19 predniSONE [Deltasone -] 60 mg PO DAILY 4 Days #12 tablet 09/27/19 Review of Systems - Review of Systems Able to Perform ROS?: Yes Constitutional: No: Symptoms Reported HEENTM: No: Symptoms Reported Respiratory: No: Symptoms reported Cardiac (ROS): No: Symptoms Reported ABD/GI: No: Symptoms Reported : No: Symptoms Reported Musculoskeletal: Yes: Other (nipple pain) Integumentary: No: Symptoms Reported Neurological: No: Symptoms reported Endocrine: No: Symptoms Reported Hematologic/Lymphatic: No: Symptoms Reported All Other Systems: Reviewed and Negative <Ba Morales - Last Filed: 10/16/19 08:52> *Physical Exam - Vital Signs Last Vital Signs Temp Pulse Resp BP Pulse Ox 98.9 F 73 20 123/76 100 10/16/19 06:31 10/16/19 06:31 10/16/19 06:31 10/16/19 06:31 10/16/19 06:31 <Rowena Garcia - Last Filed: 10/16/19 08:32> - Vital Signs Last Vital Signs Temp Pulse Resp BP Pulse Ox 98.9 F 73 20 123/76 100 10/16/19 06:31 10/16/19 06:31 10/16/19 06:31 10/16/19 06:31 10/16/19 06:31 - Physical Exam General Appearance: Yes: Nourished, Appropriately Dressed, Obese, Other (energetic and in good spirits). No: Apparent Distress HEENT: positive: EOMI, DEVANTE, Normal Voice, Symmetrical, Pharynx Normal, Hearing Grossly Normal, Other (peripheral vision intact to finger test with glasses on). negative: Scleral Icterus (R), Scleral Icterus (L), Tonsillar Exudate, Tonsillar Erythema, Nasal Congestion Neck: positive: Normal Thyroid, Supple. negative: Tender, Trachea midline, Rigid, Decreased range of motion, Lymphadenopathy (R), Lymphadenopathy (L) Respiratory/Chest: positive: Lungs Clear, Wheezing (mild end-expiratory wheezing at bases), Other (Breast exam: no masses/nodules, non-tender, no nipple tenderness to palpation, no nipple discharge, no axillary LAD). negative: Chest Tender, Normal Breath Sounds, Respiratory Distress, Labored Respiration, Decreased Breath Sounds, Crackles, Rales, Rhonchi, Stridor Cardiovascular: positive: Regular Rhythm, Regular Rate. negative: Murmur Gastrointestinal/Abdominal: positive: Normal Bowel Sounds, Flat, Soft. negative: Tender, Organomegaly, Pulsatile Mass, Guarding, Rebound Musculoskeletal: positive: Normal Inspection. negative: CVA Tenderness, CVA Tenderness (R), CVA Tenderness (L), Decreased Range of Motion Extremity: positive: Normal Capillary Refill, Normal Inspection, Normal Range of Motion, Pelvis Stable, Other (gait normal). negative: Tender Integumentary: positive: Normal Color, Dry, Warm Neurologic: positive: Fully Oriented, Alert, Normal Mood/Affect, Normal Response <Jurao,Ba - Last Filed: 10/16/19 08:52> ED Treatment Course - ADDITIONAL ORDERS Additional order review: Laboratory Results 10/16/19 07:35 Urine HCG, Qual Negative <Rowena Garcia - Last Filed: 10/16/19 08:32> Medical Decision Making - Medical Decision Making 10/16/19 08:50 Patient presents with complaint of non-specific nipple pain without discharge or other symptoms. Breast exam unremarkable, no other symptoms, VSS. UPREG ordered to evaluate for and is negative. Patient has f/u with OBGYN 3 days from now and can safely be discharged home with OBGYN f/u. <Ba Morales - Last Filed: 10/16/19 08:52> Discharge - Discharge Information Problems reviewed: Yes - Admission No <Rowena Garcia - Last Filed: 10/16/19 08:32> - Discharge Information Problems reviewed: Yes - Admission No <Ba Morales - Last Filed: 10/16/19 08:52> - Discharge Information Clinical Impression/Diagnosis: Nipple tenderness Condition: Stable Disposition: HOME - Follow up/Referral Referrals: Chastity Edmond MD [Primary Care Provider] - - Patient Discharge Instructions Additional Instructions: Your test was negative. Follow up with your OBGYN on Thursday at your appointment. Your care is not complete until you follow up. Take ibuprofen 600 mg every 8 hours as needed for pain. Take with food, as this can irritate your stomach. Ibuprofen, Advil, Aleve, Motrin are all the same type of medication. Return to the ER for increasing pain, chest pain, shortness of breath, vomiting, lightheadedness, passing out, numbness, weakness, fever, increasing redness or any other new, worsening or concerning symptoms. - Post Discharge Activity Work/Back to School Note: Back to Work
[2019-10-16] MEDS ORDERED: ALBUTEROL SO4 HFA INHALER IH ONE (08:09)
--- NOTE | 2019-10-16 08:44 | PDOC ---
Attending Attestation - Resident Resident Name: Ba Morales - ED Attending Attestation I have performed the following: I have examined & evaluated the patient, The case was reviewed & discussed with the resident, I agree w/resident's findings & plan, Exceptions are as noted - HPI HPI: 10/16/19 08:39 24 years old with no significant past medical history presents to the emergency department with bilateral nipple discomfort. Patient states this happens to her a few times a year usually during her menstrual cycle her last menstrual cycle was 2 weeks ago denies trauma fever chills weight loss no constitutional symptoms there is no change in her nipple size appearance there is no masses noted no discharge noted chest discomfort symptoms are mild to moderate persistent constant no exacerbating or alleviating factors. - Physicial Exam PE: 10/16/19 08:42 Vitals: Triage Vital signs reviewed General Appearance: No acute distress, well nourished well developed, Head: Atraumatic, Breast: Breasts symmetrical bilaterally no masses noted on manual examination, nipples normal-appearing no changes in skin color no discharge from the nipple Axilla: No lymph nodes noted Extremities: Full range of motion to all extremities, no cyanosis, clubbing, or edema Skin: Warm and dry, no rashes or lesions, no rash, no petechiae Psych: Normal mood, normal affect - Medical Decision Making 10/16/19 08:43 Well-appearing no apparent distress with bilateral nipple discomfort similar to previous episodes No acute findings on physical examination at this time 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 Discharge - Discharge Information Problems reviewed: Yes Clinical Impression/Diagnosis: Nipple tenderness Condition: Stable Disposition: HOME - Follow up/Referral Referrals: Chastity Edmond MD [Primary Care Provider] - - Patient Discharge Instructions Additional Instructions: Your test was negative. Follow up with your OBGYN on Thursday at your appointment. Your care is not complete until you follow up. Take ibuprofen 600 mg every 8 hours as needed for pain. Take with food, as this can irritate your stomach. Ibuprofen, Advil, Aleve, Motrin are all the same type of medication. Return to the ER for increasing pain, chest pain, shortness of breath, vomiting, lightheadedness, passing out, numbness, weakness, fever, increasing redness or any other new, worsening or concerning symptoms. - Post Discharge Activity Work/Back to School Note: Back to Work
== END 2019-10-16 08:41 | disposition home or self-care (01) ==
LOC: JER 05:44
DX: N64.4 Mastodynia (principal)
CPT/HCPCS: 84703; 99283-25

== ENCOUNTER 2019-10-31 16:45 | Emergency (ER) | payer BC ==
--- NOTE | 2019-10-31 17:03 | PDOC ---
Rapid Medical Evaluation Time Seen by Provider: 10/31/19 16:49 Medical Evaluation: Allergies Allergy/AdvReac Type Severity Reaction Status Date / Time rangel Allergy Verified 10/16/19 06:30 latex Allergy Verified 10/16/19 06:30 shellfish derived Allergy Verified 10/16/19 06:30 10/31/19 16:50 I have performed a brief in-person evaluation of this patient. The patient presents with a chief complaint of:allergic to shrimps but ate a lot of it today, now w/ facial/lip swelling. No sob, able to speak in full sentences in triage and well nandini. EMS gave benadryl and albuterol Pertinent physical exam findings:stable I have ordered the following:nothing The patient will proceed to the ED for further evaluation. 10/31/19 17:03 Discharge Disposition - Diagnosis Allergic reaction Qualifiers: Encounter type: initial encounter Qualified Code(s): T78.40XA - Allergy, unspecified, initial encounter - Referrals - Patient Instructions - Post Discharge Activity
[2019-10-31 17:06] VITALS: BMI 28.8
--- NOTE | 2019-10-31 17:20 | PDOC ---
History of Present Illness - General Chief Complaint: Allergic Reaction Stated Complaint: ALLERGIC REACTION Time Seen by Provider: 10/31/19 16:49 - History of Present Illness Initial Comments: Pt is a 23yo F with PMH asthma who presents with allergic reaction. Pt was eating shrimp 2 hours [employer] and felt warmth, hives, and facial swelling. Was given albuterol and benadryl by EMS. States that she was told by EMS that she was wheezing, but states that it improved following albuterol. Currently complains of rhinorrhea, facial/lip swelling, itchy eyes, and tingling in her R thumb. Denies any SOB, coughing, abdominal pain, nausea/vomiting, dizziness, lightheadedness, or syncope. PCP: Feli PMH: see HPI PSH: denies Meds: see chart Allergies: rangel, latex, shrimp Review of Systems CONSTITUTIONAL:denies fever, chills, diaphoresis, generalized weakness, malaise HEENT:reports rhinorrhea, nasal congestion, denies sore throat, throat swelling, difficulty swallowing, mouth swelling, ear pain, eye pain, visual changes CARDIOVASCULAR:denies chest pain, syncope, palpitations, irregular heart rate, lightheadedness RESPIRATORY:denies cough, shortness of breath, wheezing GASTROINTESTINAL: denies abdominal pain, nausea, vomiting, diarrhea, constipation, melena, hematochezia GENITOURINARY:denies dysuria, frequency, urgency, hesitancy, hematuria MUSCULOSKELETAL:denies myalgia, arthralgia, neck pain, back pain HEMATOLOGIC/IMMUNOLOGIC:denies easy bleeding, easy bruising ENDOCRINE: denies unexplained weight gain, unexplained weight loss NEUROLOGIC:denies headache, loss of consciousness, dizziness, unsteady gait, mental status changes, bladder or bowel incontinence SKIN:reports itching Physical Exam General: awake, alert, fully oriented, in no acute distress, well developed, well nourished Head: normocephalic, atraumatic, facial edema of lips, periorbital region, forehead Eyes: PERRL, EOMI, anicteric sclera, conjunctiva clear ENT: hearing grossly normal, TMs clear bilaterally, nares patent, oropharynx clear without exudates. Moist mucous membranes; no tongue swelling, no swelling of oropharynx. no change in voice Neck: supple, normal ROM Lung: equal breath sounds b/l, CTA b/l, no crackles, wheezes; no distress, speaks full sentences Heart: RRR, normal S1, S2, no murmurs appreciated Abdomen: soft, non tender, normoactive bowel sounds, no guarding, rebound, masses Extremities: normal ROM, no edema, no erythema or tenderness, DP/PT pulses 2+ and symmetric, no clubbing, cyanosis Neuro: CN2-12 grossly intact, moves all extremities, normal speech, normal gait, sensation intact Skin: warm, dry, rashes noted at b/l hands Past History - Medical History Allergies/Adverse Reactions: Allergies Allergy/AdvReac Type Severity Reaction Status Date / Time rangel Allergy Verified 10/31/19 16:50 latex Allergy Verified 10/31/19 16:50 shellfish derived Allergy Verified 10/31/19 16:50 Home Medications: Ambulatory Orders Albuterol 0.083% Nebulizer Hafsa [Ventolin 0.083% Nebulizer Soln -] 1 amp NEB Q6H PRN #30 amp 12/31/18 Albuterol 0.083% Nebulizer Hafsa [Ventolin 0.083% Nebulizer Soln -] 1 neb NEB Q4H PRN #100 vial 09/27/19 Diphenhydramine [Benadryl -] 50 mg PO TID PRN #21 capsule 10/31/19 Epinephrine [Epipen] 0.3 mg IJ ONCE PRN #1 auto.injct 10/31/19 Asthma: Yes COPD: No CHF: No - Reproductive History Is Patient Now?: No (#): 1 Para: 0 Therapeutic (s) & number: Yes (2 YEARS AGO) - Immunization History Immunization Up to Date: Yes - Psycho-Social/Smoking History Smoking History: Never smoked Have you smoked in the past 12 months: No Number of Cigarettes Smoked Daily: 5 'Breaking Loose' booklet given: 12/28/18 - Substance Abuse Hx (Audit-C & DAST Scrn) How often the patient has a drink containing alcohol: Monthly or less Score: In Men: 4 or > Positive; In Women: 3 or > Positive: 1 Screen Result (Pos requires Nsg. Audit-10AR): Negative In the last yr the pt used illegal drug/Rx for NonMed reason: No Score: Yes response is considered Positive: 0 Screen Result (Positive result requires Nsg. DAST-10): Negative *Physical Exam - Vital Signs Last Vital Signs Temp Pulse Resp BP Pulse Ox 98.3 F 80 18 139/85 99 10/31/19 17:03 10/31/19 17:03 10/31/19 17:03 10/31/19 17:03 10/31/19 17:03 Medical Decision Making - Medical Decision Making Pt is a 23yo F with PMH asthma who presents with allergic reaction. DDx: allergic reaction, anaphylaxis Plan: benadryl, decadron, pepcid Pt re-assessed after medications with decreased facial swelling, states that she rhinorrhea has improved 11/01/19 19:37 Pt re-assessed, no facial swelling compared to baseline, states that she would like to go home. Patient stable for discharge. Symptoms controlled. Given follow up instructions and strict return precautions. Patient expressed understanding and agree to plan. Disposition Discharge Discharge - Discharge Information Problems reviewed: Yes Clinical Impression/Diagnosis: Allergic reaction Qualifiers: Encounter type: initial encounter Qualified Code(s): T78.40XA - Allergy, unspecified, initial encounter Condition: Stable Disposition: HOME - Admission No - Additional Discharge Information Prescriptions: Diphenhydramine [Benadryl -] 50 mg PO TID PRN #21 capsule PRN Reason: Allergies Epinephrine [Epipen] 0.3 mg IJ ONCE PRN #1 auto.injct PRN Reason: Allergies - Follow up/Referral Referrals: Chastity Edmond MD [Primary Care Provider] - - Patient Discharge Instructions Patient Printed Discharge Instructions: DI for Food Allergy Additional Instructions: Today you were evaluated for an allergic reaction. We have given you steroids, Benadryl, and Pepcid in the emergency room for your reaction and you feel better. At home, you can take Benadryl as needed. If you experience difficulty breathing or swelling in your neck again, please use the EpiPen we have provided and call 911 immediately. Please do not eat shrimp again. You need to see your primary doctor in the next few days for further care. If you have any worsening swelling, trouble breathing, voice changes, inability to swallow, or any other new or concerning symptoms, please return to the emergency room. - Post Discharge Activity
[2019-10-31] MEDS ORDERED: DEXAMETHASONE SOD PHOSPHATE 10 MG/1 ML VIAL IVPUSH ONE (18:00)
[2019-10-31] MEDS ORDERED: FAMOTIDINE 20 MG/50 ML IVPB 20 MG/50 ML MG IVPB ONE ×2 (18:06→18:21)
[2019-10-31] MEDS ORDERED: DEXAMETHASONE SOD PHOSPHATE 10 MG/1 ML VIAL ONE (18:21)
--- NOTE | 2019-10-31 20:24 | PDOC ---
*Physical Exam - Vital Signs Last Vital Signs Temp Pulse Resp BP Pulse Ox 98.3 F 80 18 139/85 99 10/31/19 17:03 10/31/19 17:03 10/31/19 17:03 10/31/19 17:03 10/31/19 17:03 ED Treatment Course - Medications Given in the ED: ED Medications Discontinued Medications Generic Name Dose Route Start Last Admin Trade Name Freq PRN Reason Stop Dose Admin Dexamethasone Sodium Phosphate 10 mg 10/31/19 18:00 10/31/19 18:32 Decadron Injection - IVPUSH 10/31/19 18:01 10 mg ONCE ONE Administration Diphenhydramine HCl 25 mg 10/31/19 17:59 10/31/19 18:31 Benadryl Injection - IVPUSH 10/31/19 18:00 25 mg ONCE ONE Administration Famotidine/Sodium Chloride 20 mg in 50 mls @ 100 mls/hr 10/31/19 18:06 10/31/19 18:32 Pepcid 20 Mg Premixed Ivpb - IVPB 10/31/19 18:35 100 mls/hr ONCE ONE Administration Medical Decision Making - Medical Decision Making 10/31/19 20:23 Re-evaluated, breathing well, in NAD, exam WNL, no rash. Patient feeling better, wants to go home. Writing discharge summary, giving PO Benadryl and EpiPen scripts. Stable for discharge home with PMD f/u, advised to not eat shrimp again and to use medications as needed. Discharge - Discharge Information Problems reviewed: Yes Clinical Impression/Diagnosis: Allergic reaction Qualifiers: Encounter type: initial encounter Qualified Code(s): T78.40XA - Allergy, unspecified, initial encounter - Additional Discharge Information Prescriptions: Diphenhydramine [Benadryl -] 50 mg PO TID PRN #21 capsule PRN Reason: Allergies Epinephrine [Epipen] 0.3 mg IJ ONCE PRN #1 auto.injct PRN Reason: Allergies - Follow up/Referral Referrals: Chastity Edmond MD [Primary Care Provider] - - Patient Discharge Instructions Patient Printed Discharge Instructions: DI for Food Allergy Additional Instructions: Today you were evaluated for an allergic reaction. We have given you steroids, Benadryl, and Pepcid in the emergency room for your reaction and you feel better. At home, you can take Benadryl as needed. If you experience difficulty breathing or swelling in your neck again, please use the EpiPen we have provided and call 911 immediately. Please do not eat shrimp again. You need to see your primary doctor in the next few days for further care. If you have any worsening swelling, trouble breathing, voice changes, inability to swallow, or any other new or concerning symptoms, please return to the emergency room. - Post Discharge Activity
[2019-10-31 20:45] VITALS: BP 137/96; PULSE 87; TEMP 98.5
--- NOTE | 2019-11-11 16:56 | PDOC ---
Documentation entered by Say López SCRIBE, acting as scribe for Bertrand Berry DO. Bertrand Berry DO: This documentation has been prepared by the Rene daniel Xhesika, SCRIBE, under my direction and personally reviewed by me in its entirety. I confirm that the documentation accurately reflects all work, treatment, procedures, and medical decision making performed by me. Attending Attestation - Resident Resident Name: PeteCassie - ED Attending Attestation I have performed the following: I have examined & evaluated the patient, The case was reviewed & discussed with the resident, I agree w/resident's findings & plan - HPI HPI: 10/31/19 18:45 see resident HPI - Physicial Exam PE: 10/31/19 18:45 agree with resident exam - Medical Decision Making 10/31/19 18:38 24y/o F with shellfish allergy w/o prior Anaphylaxis who presents with lip swelling, hives which occurred at 3:30PM after eating shrimp with no associated N/V/D. Pt denies any vocal changes or difficulty swallowing. PE: No apparent distress no oropharyngeal edema no stridor minor lip swelling normal voice resolved hives to hands Pt ws given Benadryl and albuterol neb in the field Plan for decadron, pepcid, close airway monitoring 10/31/19 Reassesed on multiple occasions, despite pts mother stating that lower lip continues to swell, pt status and physical exam has been unchanged, normal voice, no pharyngeal edema, normal tongue, pt looks similar to prior photos of herself. Will plan for reassurance instruction on epi pen use and advise to monitor closely for recurrance. Return precautions given. Discharge - Discharge Information Problems reviewed: Yes Clinical Impression/Diagnosis: Allergic reaction Qualifiers: Encounter type: initial encounter Qualified Code(s): T78.40XA - Allergy, unspecified, initial encounter Condition: Stable Disposition: HOME - Additional Discharge Information Prescriptions: Diphenhydramine [Benadryl -] 50 mg PO TID PRN #21 capsule PRN Reason: Allergies Epinephrine [Epipen] 0.3 mg IJ ONCE PRN #1 auto.injct PRN Reason: Allergies - Follow up/Referral Referrals: Chastity Edmond MD [Primary Care Provider] - - Patient Discharge Instructions Patient Printed Discharge Instructions: DI for Food Allergy Additional Instructions: Today you were evaluated for an allergic reaction. We have given you steroids, Benadryl, and Pepcid in the emergency room for your reaction and you feel manuel r. At home, you can take Benadryl as needed. If you experience difficulty breathing or swelling in your neck again, please use the EpiPen we have provided and call 911 immediately. Please do not eat shrimp again. You need to see your primary doctor in the next few days for further care. If you have any worsening swelling, trouble breathing, voice changes, inability to swallow, or any other new or concerning symptoms, please return to the emergency room. - Post Discharge Activity
== END 2019-10-31 20:45 | disposition home or self-care (01) ==
LOC: JER 16:45
PROC: 3E033GC Introduction of Other Therapeutic Substance into Peripheral Vein, Percutaneous Approach (ICD-10-PCS; principal; 2019-10-31)
DX: T78.40XA Allergy, unspecified, initial encounter (principal)
CPT/HCPCS: 99284-25; J1100

== ENCOUNTER 2020-06-18 03:32 | Emergency (ER) | payer OTHER ==
[2020-06-18 03:54] VITALS: BP 138/86; PULSE 89; TEMP 98.2; BMI 32.5
[2020-06-18] MEDS ORDERED: predniSONE 20 MG TABLET (UD) PO ONE (04:06)
[2020-06-18] MEDS ORDERED: predniSONE 20 MG TABLET (UD) ONE (04:07)
== END 2020-06-18 06:30 | disposition home or self-care (01) ==
LOC: JER 03:32
DX: T78.40XA Allergy, unspecified, initial encounter (principal)
CPT/HCPCS: 99283-25

== ENCOUNTER 2021-03-16 13:57 | Emergency (ER) | payer OTHER ==
[2021-03-16 14:18] VITALS: BP 112/78; PULSE 84; TEMP 98.2; BMI 34.9
[2021-03-16 16:10] LABS: URINE APPEARANCE CLEAR; URINE BILIRUBIN NEGATIVE (NEGATIVE); URINE COLOR YELLOW; URINE GLUCOSE (UA) NEGATIVE (NEGATIVE); URINE KETONE TRACE (NEGATIVE); URINE LEUK ESTERASE NEGATIVE (NEGATIVE); URINE NITRITE NEGATIVE (NEGATIVE); URINE PROTEIN TRACE (NEGATIVE)
[2021-03-16 16:13] LABS: HCG,QUALITATIVE URINE Negative
== END 2021-03-16 15:43 | disposition home or self-care (01) ==
LOC: JERFT 13:57 → JER 13:57 → JERFT 15:43
DX: N89.8 Other specified noninflammatory disorders of vagina (principal)
CPT/HCPCS: 36415; 81003; 84703; 87070; 87205; 87491; 87591; 99283-25

== ENCOUNTER 2021-03-24 14:52 | Emergency (ER) | payer OTHER ==
[2021-03-24 14:57] VITALS: BP 142/92; PULSE 87; TEMP 97.6; BMI 34.9
== END 2021-03-24 17:42 | disposition home or self-care (01) ==
LOC: JER 14:52
DX: R07.89 Other chest pain (principal); J06.9 Acute upper respiratory infection, unspecified
CPT/HCPCS: 71046-TC-FY; 93005; 93010; 99285-25; C9803-CS; U0003; U0005

== ENCOUNTER 2021-08-03 16:26 | Emergency (ER) | payer OTHER ==
[2021-08-03 16:43] VITALS: BP 153/66; PULSE 86; TEMP 98.1; BMI 26.6
[2021-08-03] MEDS ORDERED: ALBUTEROL SO4 2.5/IPRATROPIUM 0.5 INH SOL 3 ML VIAL.NEB. NEB ONE ×2 (17:03→17:09)
[2021-08-03] MEDS ORDERED: predniSONE 20 MG TABLET (UD) PO ONE (17:04)
[2021-08-03] MEDS ORDERED: predniSONE 20 MG TABLET (UD) ONE (17:09)
== END 2021-08-03 18:57 | disposition home or self-care (01) ==
LOC: JER 16:26
PROC: 3E0F7GC Introduction of Other Therapeutic Substance into Respiratory Tract, Via Natural or Artificial Opening (ICD-10-PCS; principal; 2021-08-03)
DX: J45.901 Unspecified asthma with (acute) exacerbation (principal)
CPT/HCPCS: 99283-25

== ENCOUNTER 2021-08-16 10:47 | Emergency (ER) | payer OTHER ==
[2021-08-16 11:07] VITALS: BMI 32.1
[2021-08-16] MEDS ORDERED: ALBUTEROL SO4 2.5/IPRATROPIUM 0.5 INH SOL 3 ML VIAL.NEB. NEB ONE ×5 (11:48→15:07)
[2021-08-16] MEDS ORDERED: predniSONE 20 MG TABLET (UD) PO ONE (12:47)
[2021-08-16] MEDS ORDERED: predniSONE 20 MG TABLET (UD) ONE (12:55)
[2021-08-16 13:40] LABS: THROAT:GRP A STREP NOT DETECTED (NOTDETECTED)
[2021-08-16] MEDS ORDERED: methylPREDNISolone NA SUCC 125 MG/2 ML VIAL IVPUSH ONE (14:19)
[2021-08-16] MEDS ORDERED: MAGNESIUM SULF 50% (8.12 MEQ/2 ML-1 GM VIAL) IVPB ONE (14:20)
[2021-08-16] MEDS ORDERED: methylPREDNISolone NA SUCC 125 MG/2 ML VIAL ONE (16:03)
[2021-08-16] MEDS ORDERED: MAGNESIUM SULFATE IN WATER 2 GM/50 ML IVPB IVPB ONE (16:03)
[2021-08-16 16:55] VITALS: TEMP 98.1
[2021-08-16 18:53] VITALS: BP 148/86; PULSE 94
== END 2021-08-16 19:43 | disposition home or self-care (01) ==
LOC: JER 10:47
PROC: 3E0F7GC Introduction of Other Therapeutic Substance into Respiratory Tract, Via Natural or Artificial Opening (ICD-10-PCS; principal; 2021-08-16)
PROC: 3E0F7GC Introduction of Other Therapeutic Substance into Respiratory Tract, Via Natural or Artificial Opening (ICD-10-PCS; 2021-08-16)
PROC: 3E033GC Introduction of Other Therapeutic Substance into Peripheral Vein, Percutaneous Approach (ICD-10-PCS; 2021-08-16)
PROC: 3E033GC Introduction of Other Therapeutic Substance into Peripheral Vein, Percutaneous Approach (ICD-10-PCS; 2021-08-16)
DX: J45.901 Unspecified asthma with (acute) exacerbation (principal)
CPT/HCPCS: 0241U-QW; 71046-TC-FY; 87651; 99284-25

== ENCOUNTER 2021-09-23 09:55 | Emergency (ER) | payer OTHER ==
[2021-09-23 10:03] VITALS: BP 144/69; PULSE 94; TEMP 97.9; BMI 34.9
[2021-09-23] MEDS ORDERED: predniSONE 20 MG TABLET (UD) PO ONE (11:02)
[2021-09-23] MEDS ORDERED: predniSONE 20 MG TABLET (UD) ONE (11:17)
== END 2021-09-23 11:23 | disposition home or self-care (01) ==
LOC: JERFT 09:55
DX: R05.1 Acute cough (principal)
CPT/HCPCS: 0241U-QW; 99283-25

== ENCOUNTER 2021-09-24 10:37 | Emergency (ER) | payer OTHER ==
[2021-09-24 11:17] VITALS: BP 143/89; PULSE 94; TEMP 97.8; BMI 34.9
[2021-09-24] MEDS ORDERED: AZITHROMYCIN 250 MG TABLET PO ONE (13:00)
[2021-09-24] MEDS ORDERED: AZITHROMYCIN 250 MG TABLET ONE (13:04)
== END 2021-09-24 13:08 | disposition home or self-care (01) ==
LOC: JERFT 10:37
DX: J06.9 Acute upper respiratory infection, unspecified (principal); J45.909 Unspecified asthma, uncomplicated
CPT/HCPCS: 71046-TC-FY; 99283-25

== ENCOUNTER 2022-03-09 13:03 | Emergency (ER) | payer OTHER ==
[2022-03-09 13:23] VITALS: BP 136/83; PULSE 110; RESP 18; BMI 35.7
[2022-03-09] MEDS ORDERED: ACETAMINOPHEN 500 MG TABLET (FP) PO ONE (13:46)
[2022-03-09] MEDS ORDERED: ALBUTEROL SO4 2.5/IPRATROPIUM 0.5 INH SOL 3 ML VIAL.NEB. NEB ONE ×2 (13:46→13:47)
[2022-03-09] MEDS ORDERED: ACETAMINOPHEN 325 MG TABLET (FP) ONE (13:47)
[2022-03-09] MEDS ORDERED: predniSONE 1 MG TABLET (FP) PO ONE (13:50)
[2022-03-09] MEDS ORDERED: predniSONE 10 MG TABLET (UD) ONE (13:51)
[2022-03-09] MEDS ORDERED: predniSONE 20 MG TABLET (UD) ONE (13:51)
[2022-03-09] MEDS ORDERED: KETOROLAC TROMETHAMINE 30 MG/1 ML VIAL IM ONE (14:41)
[2022-03-09] MEDS ORDERED: KETOROLAC TROMETHAMINE 30 MG/1 ML VIAL ONE ×2 (14:57→14:58)
[2022-03-09 15:12] VITALS: TEMP 100.1
== END 2022-03-09 15:49 | disposition home or self-care (01) ==
LOC: JER 13:03
PROC: 3E0F7GC Introduction of Other Therapeutic Substance into Respiratory Tract, Via Natural or Artificial Opening (ICD-10-PCS; principal; 2022-03-09)
PROC: 3E0233Z Introduction of Anti-inflammatory into Muscle, Percutaneous Approach (ICD-10-PCS; 2022-03-09)
DX: J09.X2 Influenza due to identified novel influenza A virus with other respiratory manifestations (principal); R05.1 Acute cough; R06.02 Shortness of breath
CPT/HCPCS: 0241U-QW; 99284-25

== ENCOUNTER 2022-05-18 23:57 | Emergency (ER) | payer OTHER ==
[2022-05-19 00:05] VITALS: TEMP 98.8; BMI 34.9
[2022-05-19] MEDS ORDERED: ONDANSETRON 4 MG/2 ML VIAL IVPUSH ONE (00:45)
[2022-05-19] MEDS ORDERED: ACETAMINOPHEN 1000 MG/100 ML BAG IVPB ONE (00:45)
[2022-05-19] MEDS ORDERED: SODIUM CHLORIDE 0.9% 500 ML INFUS.BAG IV ONE (00:45)
[2022-05-19] MEDS ORDERED: ACETAMINOPHEN INJECTION 100 ML IVPB ONE (00:55)
[2022-05-19] MEDS ORDERED: ONDANSETRON 4 MG/2 ML VIAL ONE (00:55)
[2022-05-19 01:13] LABS: BASO % 0.7 % (0-2.0); HEMOGLOBIN 9.8 GM/dL (10.7-15.3); LYMPH % 3.1 % (8-40); MCHC 29.7 g/dl (32.0-36.0); MEAN CELL VOLUME 56.3 fl (80-96); MEAN PLT VOLUME 8.6 fl (7.5-11.1); MONO % 2.1 % (3.8-10.2); NEUT % 94.1 % (42.8-82.8); PLATELET COUNT 214 10^3/uL (134-434); RBC 5.85 M/mm3 (3.60-5.2); RDW 19.6 % (11.6-15.6); WHITE BLOOD COUNT 13.9 K/mm3 (4.0-10.0)
[2022-05-19 01:23] LABS: MCH 16.8 pg (25.7-33.7)
[2022-05-19 01:41] LABS: BLOOD UREA NITROGEN 5.6 mg/dL (7-18); CALCIUM 8.9 mg/dL (8.5-10.1)
[2022-05-19 01:45] LABS: CREATININE 0.7 mg/dL (0.55-1.3)
[2022-05-19 01:47] LABS: BILIRUBIN,TOTAL 0.6 mg/dL (0.2-1); TOT PROT 7.8 g/dl (6.4-8.2)
[2022-05-19] MEDS ORDERED: KETOROLAC TROMETHAMINE 15 MG/ML VIAL IVPUSH ONE (02:04)
[2022-05-19] MEDS ORDERED: KETOROLAC TROMETHAMINE 15 MG/ML VIAL ONE (02:33)
[2022-05-19] MEDS ORDERED: METOCLOPRAMIDE HCL INJECTION 10 MG/2 ML VIAL IVPUSH ONE (03:04)
[2022-05-19] MEDS ORDERED: METOCLOPRAMIDE HCL INJECTION 10 MG/2 ML VIAL ONE (03:06)
[2022-05-19 03:15] LABS: EPI CELLS 20 /uL (0-25.1); HYALINE CASTS 1 /uL (0-3.1); URINE APPEARANCE CLEAR; URINE BACTERIA 51 /uL (0-1359); URINE BILIRUBIN NEGATIVE (NEGATIVE); URINE COLOR YELLOW; URINE GLUCOSE (UA) NEGATIVE (NEGATIVE); URINE KETONE 3+ (NEGATIVE); URINE LEUK ESTERASE NEGATIVE (NEGATIVE); URINE NITRITE NEGATIVE (NEGATIVE); URINE PROTEIN 1+ (NEGATIVE); URINE RBC 1693 /uL (0-23.9); URINE UROBILINOGEN 0.2 mg/dL (0.2-1.0); URINE WBC 34 /uL (0-25.8)
[2022-05-19 04:09] VITALS: BP 144/79; PULSE 69; RESP 14
[2022-05-19 04:26] LABS: ANISOCYTOSIS 2+; MACROCYTOSIS 0; OVALOCYTE 2+; TARGET CELLS 2+
== END 2022-05-19 04:24 | disposition home or self-care (01) ==
LOC: JER 23:57
PROC: 3E033NZ Introduction of Analgesics, Hypnotics, Sedatives into Peripheral Vein, Percutaneous Approach (ICD-10-PCS; principal; 2022-05-18)
PROC: 3E033GC Introduction of Other Therapeutic Substance into Peripheral Vein, Percutaneous Approach (ICD-10-PCS; 2022-05-18)
PROC: 3E033GC Introduction of Other Therapeutic Substance into Peripheral Vein, Percutaneous Approach (ICD-10-PCS; 2022-05-18)
PROC: 3E033GC Introduction of Other Therapeutic Substance into Peripheral Vein, Percutaneous Approach (ICD-10-PCS; 2022-05-18)
DX: R10.32 Left lower quadrant pain (principal); R11.2 Nausea with vomiting, unspecified; Z20.822 Contact with and (suspected) exposure to COVID-19
CPT/HCPCS: 0241U-QW; 36415; 76830-TC; 80053; 81003; 83690; 84703; 85025; 87086; 99284-25

== ENCOUNTER 2022-05-28 13:05 | Day surgery (SDC) | payer OTHER ==
[2022-05-28] MEDS ORDERED: FERRIC CARBOXYMALTOSE 750 MG in SODIUM CHLORIDE 250 ML IVPB ONE (14:00)
[2022-05-28 15:17] VITALS: BP 152/97; PULSE 81; RESP 17; TEMP 98.4
== END 2022-05-28 15:17 | disposition home or self-care (01) ==
LOC: FINFUSION 13:05 → FM/S 13:12 → FINFUSION 15:17
PROVIDERS: ATTEND Family Medicine
PROC: 3E033GC Introduction of Other Therapeutic Substance into Peripheral Vein, Percutaneous Approach (ICD-10-PCS; principal; 2022-05-28)
DX: D50.9 Iron deficiency anemia, unspecified (principal)
CPT/HCPCS: 96365; J1439

== ENCOUNTER 2022-06-04 13:36 | Day surgery (SDC) | payer OTHER ==
[2022-06-04] MEDS ORDERED: FERRIC CARBOXYMALTOSE 750 MG in SODIUM CHLORIDE 250 ML IVPB ONE (14:15)
[2022-06-04 15:37] VITALS: BP 133/86; PULSE 78; RESP 18; TEMP 98.3
== END 2022-06-04 15:40 | disposition home or self-care (01) ==
LOC: FINFUSION 13:36 → FM/S 13:37 → FINFUSION 15:40
PROVIDERS: ATTEND Family Medicine
PROC: 3E033GC Introduction of Other Therapeutic Substance into Peripheral Vein, Percutaneous Approach (ICD-10-PCS; principal; 2022-06-04)
DX: D50.9 Iron deficiency anemia, unspecified (principal)
CPT/HCPCS: 96365; J1439

== ENCOUNTER 2022-09-07 15:08 | Emergency (ER) | payer OTHER ==
[2022-09-07 15:23] VITALS: BP 130/86; PULSE 90; RESP 19; TEMP 98; BMI 34.9
== END 2022-09-07 16:16 | disposition home or self-care (01) ==
LOC: JER 15:08 → JERFT 15:08
DX: R10.2 Pelvic and perineal pain (principal)
CPT/HCPCS: 99282-25

== ENCOUNTER 2022-12-19 16:30 | Emergency (ER) | payer OTHER ==
[2022-12-19 16:44] VITALS: BP 148/90; PULSE 84; RESP 18; TEMP 98.1; BMI 28.8
[2022-12-19] MEDS ORDERED: DIPHTH,PERTUSS(ACELL),TET 0.5 ML DISP.SYRIN IM ONE ×2 (16:44→16:50)
== END 2022-12-19 17:03 | disposition home or self-care (01) ==
LOC: FER 16:30
PROC: 3E0234Z Introduction of Serum, Toxoid and Vaccine into Muscle, Percutaneous Approach (ICD-10-PCS; principal; 2022-12-19)
DX: S91.332A Puncture wound without foreign body, left foot, initial encounter (principal); A35 Other tetanus; W26.8XXA Contact with other sharp object(s), not elsewhere classified, initial encounter
CPT/HCPCS: 90715; 99282-25

== ENCOUNTER 2022-12-25 16:53 | Emergency (ER) | payer OTHER ==
[2022-12-25 17:05] VITALS: BP 141/87; PULSE 83; RESP 18; TEMP 98.1; BMI 35.7
== END 2022-12-25 18:08 | disposition home or self-care (01) ==
LOC: JERFT 16:53
DX: Z03.89 Encounter for observation for other suspected diseases and conditions ruled out (principal); Z01.419 Encounter for gynecological examination (general) (routine) without abnormal findings
CPT/HCPCS: 99281-25

== ENCOUNTER 2023-01-27 08:11 | Observation (INO) | payer OTHER ==
[2023-01-27 08:30] VITALS: BMI 35.7
[2023-01-27] MEDS ORDERED: ACETAMINOPHEN 500 MG TABLET (FP) PO ONE (08:42)
[2023-01-27] MEDS ORDERED: METHOCARBAMOL 500 MG TABLET PO ONE (08:42)
[2023-01-27] MEDS ORDERED: LIDOCAINE 5% TOPICAL PATCH TP ONE (08:43)
[2023-01-27] MEDS ORDERED: LIDOCAINE 4% PATCH TP ONE (08:48)
[2023-01-27] MEDS ORDERED: ACETAMINOPHEN 500 MG TABLET (FP) ONE (08:49)
[2023-01-27] MEDS ORDERED: METHOCARBAMOL 500 MG TABLET ONE (08:49)
[2023-01-27] MEDS ORDERED: ALBUTEROL SO4 2.5/IPRATROPIUM 0.5 INH SOL 3 ML VIAL.NEB. NEB ONE ×2 (09:36→10:21)
[2023-01-27 10:28] LABS: BASO % 0.5 % (0-2.0); HEMATOCRIT 33.5 % (32.4-45.2); HEMOGLOBIN 10.4 GM/dL (10.7-15.3); LYMPH % 8.2 % (8-40); MEAN CELL VOLUME 56.9 fl (80-96); MEAN PLT VOLUME 8.3 fl (7.5-11.1); NEUT % 88.3 % (42.8-82.8); PLATELET COUNT 354 10^3/uL (134-434); RBC 5.89 M/mm3 (3.60-5.2); RDW 17.4 % (11.6-15.6); WHITE BLOOD COUNT 11.8 K/mm3 (4.0-10.0)
[2023-01-27 10:30] LABS: MCH 17.6 pg (25.7-33.7)
[2023-01-27] MEDS ORDERED: ASPIRIN 81 MG CHEWABLE TABLETS PO ONE (10:46)
[2023-01-27 10:48] LABS: CHLORIDE 108 mmol/L (98-107); POTASSIUM 4.5 mmol/L (3.5-5.1); SODIUM 137 mmol/L (136-145)
[2023-01-27] MEDS ORDERED: ASPIRIN 81 MG CHEWABLE TABLETS ONE (10:49)
[2023-01-27 10:50] LABS: ANION GAP 5 mmol/L (4-13); BLOOD UREA NITROGEN 12.1 mg/dL (7-18); CALCIUM 9.5 mg/dL (8.5-10.1); CO2 24 mmol/L (21-32); GLUCOSE,RANDOM 123 mg/dL (74-106)
[2023-01-27 10:53] LABS: CREATININE 0.8 mg/dL (0.55-1.3); SGPT/ALT 17 U/L (13-61)
[2023-01-27 10:54] LABS: SGOT/AST 15 U/L (15-37)
[2023-01-27 10:55] LABS: BILIRUBIN,TOTAL 0.9 mg/dL (0.2-1); TOT PROT 7.6 g/dl (6.4-8.2)
[2023-01-27 10:56] LABS: ALK PHOS 85 U/L (45-117)
[2023-01-27 11:20] LABS: ANISOCYTOSIS 3+; MACROCYTOSIS 0; TARGET CELLS 1+
[2023-01-27] MEDS ORDERED: morphine CARPU-JECT 2 MG/1 ML DISP.SYRIN IVPUSH ONE (12:35)
[2023-01-27] MEDS ORDERED: KETOROLAC TROMETHAMINE 15 MG/ML VIAL IVPUSH ONE (12:50)
[2023-01-27] MEDS ORDERED: KETOROLAC TROMETHAMINE 15 MG/ML VIAL ONE (13:08)
[2023-01-27 18:59] VITALS: BP 138/72; PULSE 87; RESP 16; TEMP 98
[2023-01-27] MEDS ORDERED: LIDOCAINE PATCH REMOVAL MC ONE (22:00)
== END 2023-01-27 19:00 | disposition home or self-care (01) ==
LOC: JER 08:11 → JERBED 13:03
PROVIDERS: ADMIT Internal Medicine; ATTEND Internal Medicine
PROC: 3E0F7GC Introduction of Other Therapeutic Substance into Respiratory Tract, Via Natural or Artificial Opening (ICD-10-PCS; principal; 2023-01-27)
PROC: 3E0333Z Introduction of Anti-inflammatory into Peripheral Vein, Percutaneous Approach (ICD-10-PCS; 2023-01-27)
PROC: 3E0337Z Introduction of Electrolytic and Water Balance Substance into Peripheral Vein, Percutaneous Approach (ICD-10-PCS; 2023-01-27)
DX: F17.210 Nicotine dependence, cigarettes, uncomplicated (principal); Z91.013 Allergy to seafood; Z91.040 Latex allergy status; J45.909 Unspecified asthma, uncomplicated; I10 Essential (primary) hypertension
CPT/HCPCS: 0241U-QW; 36415; 71046-TC-FY; 80053; 84484; 84703; 85025; 85651; 86140; 93005; 93010; 93306-TC; 94640; 96374; 96375; 99285-25; G0378

== ENCOUNTER 2023-03-21 18:35 | Emergency (ER) | payer OTHER ==
[2023-03-21 18:44] VITALS: BP 134/82; PULSE 70; RESP 20; TEMP 98.3; BMI 36.5
== END 2023-03-21 20:20 | disposition home or self-care (01) ==
LOC: JER 18:35
DX: N93.9 Abnormal uterine and vaginal bleeding, unspecified (principal); R10.30 Lower abdominal pain, unspecified
CPT/HCPCS: 36415; 84703; 87491; 87591; 99284-25

== ENCOUNTER 2023-12-23 20:46 | Emergency (ER) | payer OTHER ==
[2023-12-23 20:53] VITALS: TEMP 99.1; BMI 37.2
[2023-12-23] MEDS ORDERED: methylPREDNISolone NA SUCC 125 MG/2 ML VIAL IM ONE (21:13)
[2023-12-23] MEDS ORDERED: ALBUTEROL SO4 2.5/IPRATROPIUM 0.5 INH SOL 3 ML VIAL.NEB. NEB ONE (21:17)
[2023-12-23] MEDS: methylPREDNISolone NA SUCC 125 MG/2 ML VIAL IVPB ONE (21:17)
[2023-12-23] MEDS: ALBUTEROL SO4 2.5/IPRATROPIUM 0.5 INH SOL 3 ML VIAL.NEB. NEB SCH (21:27)
[2023-12-23] MEDS ORDERED: methylPREDNISolone NA SUCC 125 MG/2 ML VIAL ONE (21:30)
[2023-12-23] MEDS: methylPREDNISolone NA SUCC 125 MG/2 ML VIAL IVPUSH ONE (21:37)
[2023-12-23 21:45] LABS: BASO % 0.3 % (0-2.0); EOS % 0.2 % (0-4.5); HEMATOCRIT 40.6 % (32.4-45.2); HEMOGLOBIN 13.3 GM/dL (10.7-15.3); LYMPH % 5.3 % (8-40); MCH 22.1 pg (25.7-33.7); MCHC 32.7 g/dl (32.0-36.0); MEAN CELL VOLUME 67.5 fl (80-96); MEAN PLT VOLUME 9.2 fl (7.5-11.1); MONO % 4.8 % (3.8-10.2); NEUT % 89.4 % (42.8-82.8); PLATELET COUNT 227 10^3/uL (134-434); RBC 6.03 M/mm3 (3.60-5.2); RDW 20.8 % (11.6-15.6); WHITE BLOOD COUNT 14.4 K/mm3 (4.0-10.0)
[2023-12-23 22:04] LABS: POTASSIUM 3.8 mmol/L (3.5-5.1)
[2023-12-23 22:06] LABS: ALBUMIN 3.9 g/dl (3.4-5.0); BLOOD UREA NITROGEN 9.8 mg/dL (7-18); CALCIUM 9.4 mg/dL (8.5-10.1)
[2023-12-23 22:09] LABS: ANISOCYTOSIS 2+; CREATININE 0.9 mg/dL (0.55-1.3); MACROCYTOSIS 0; OVALOCYTE 1+; TEAR DROP CELLS 1+
[2023-12-23 22:11] LABS: BILIRUBIN,TOTAL 0.4 mg/dL (0.2-1)
[2023-12-23 22:27] VITALS: BP 163/99; PULSE 103; RESP 19
[2023-12-24] MEDS ORDERED: ALBUTEROL SO4 2.5/IPRATROPIUM 0.5 INH SOL 3 ML VIAL.NEB. NEB ONE (00:43)
[2023-12-24] MEDS ORDERED: AZITHROMYCIN 500 MG TABLET ONE (01:21)
[2023-12-24] MEDS ORDERED: ALBUTEROL SO4 HFA INHALER IH ONE (01:28)
[2023-12-24] MEDS: AZITHROMYCIN 250 MG TABLET PO ONE (01:31)
[2023-12-24] MEDS: ALBUTEROL SO4 HFA INHALER IH ONE (01:35)
== END 2023-12-24 01:36 | disposition home or self-care (01) ==
LOC: JER 20:46
PROC: 3E033GC Introduction of Other Therapeutic Substance into Peripheral Vein, Percutaneous Approach (ICD-10-PCS; principal; 2023-12-23)
PROC: 3E0F7GC Introduction of Other Therapeutic Substance into Respiratory Tract, Via Natural or Artificial Opening (ICD-10-PCS; 2023-12-23)
DX: R06.02 Shortness of breath (principal); J45.901 Unspecified asthma with (acute) exacerbation; J18.9 Pneumonia, unspecified organism; F17.210 Nicotine dependence, cigarettes, uncomplicated; R05.9 Cough, unspecified; Z20.822 Contact with and (suspected) exposure to COVID-19
CPT/HCPCS: 0241U-QW; 36415; 71045-TC-FY; 71250-TC; 80053; 84703; 85025; 93005; 93010; 99285-25

== ENCOUNTER 2024-04-08 10:27 | Emergency (ER) | payer OTHER ==
[2024-04-08 10:39] VITALS: BP 165/103; PULSE 82; RESP 18; TEMP 98.4; BMI 38.0
[2024-04-08 11:42] LABS: BASO % 1.2 % (0-2.0); EOS % 6.5 % (0-4.5); HEMATOCRIT 42.5 % (32.4-45.2); LYMPH % 26.1 % (8-40); MCH 23.6 pg (25.7-33.7); MEAN CELL VOLUME 71.7 fl (80-96); MEAN PLT VOLUME 8.5 fl (7.5-11.1); MONO % 4.7 % (3.8-10.2); NEUT % 61.5 % (42.8-82.8); PLATELET COUNT 235 10^3/uL (134-434); RBC 5.93 M/mm3 (3.60-5.2); RDW 16.3 % (11.6-15.6); WHITE BLOOD COUNT 7.5 K/mm3 (4.0-10.0)
[2024-04-08 12:14] LABS: ALBUMIN 3.8 g/dl (3.4-5.0); BLOOD UREA NITROGEN 13.3 mg/dL (7-18); CALCIUM 9.4 mg/dL (8.5-10.1)
[2024-04-08 12:17] LABS: CREATININE 0.9 mg/dL (0.55-1.3)
[2024-04-08 12:19] LABS: BILIRUBIN,TOTAL 0.6 mg/dL (0.2-1); TOT PROT 7.8 g/dl (6.4-8.2)
== END 2024-04-08 12:40 | disposition home or self-care (01) ==
LOC: JERFT 10:27
DX: R22.1 Localized swelling, mass and lump, neck (principal)
CPT/HCPCS: 36415; 80053; 84439; 84443; 85025; 87651; 99283-25